=== PATIENT | male | born 1930 | race American Indian/Alaskan Native ===

== ENCOUNTER 2018-05-26 10:08 | Inpatient (IN) | payer MEDICARE, OTHER, BC ==
[2018-05-26 10:12] VITALS: BMI 27.8
--- NOTE | 2018-05-26 10:32 | EDPD ---
HPI Stroke - General Time Seen by Provider: 05/26/18 10:22 Historian: Patient, Family - History of Present Illness Narrative History of Present Illness (Free Text): 05/26/18 15:17 Patient is an 87 yo male, past medical history of lung cancer (family and patient decided "not to treat") presents with episode of shortness of breath and weakness "while in the shower" at approximatley 830 am. Patient was found by to be "very weak". When patient was seen by his daughter at approximately 900 am he was "slurring his speech". He initially denies headache , denies chest pain, denies weakness to any specific arm or leg. Daughter states that his speech is now back to normal. No abdominal pain. No nausea. No dark or bloody stools. rTPA Inclusion/Exclusion - Refusal of Treatment Patient Refused Treatment: Yes - Warning to TPA With Conditions Condition: Rapid Improvement Allergies/Home Meds Allergies/Adverse Reactions: Allergies No Known Allergies Allergy (Verified 06/10/13 08:23) Home Medications: Home Meds Medication Instructions Recorded Confirmed Warfarin [Coumadin] 3 mg PO DAILY 03/31/16 05/26/18 Albuterol HFA [Ventolin HFA 90 0.09 mg IH BID 05/26/18 05/26/18 mcg/actuation (8 g)] Albuterol/Ipratropium [Duoneb 3 3 ml IH BID 05/26/18 05/26/18 MG/3 Ml-0.5 MG/3 Ml 3 Ml] Cholecalciferol [Vitamin D] 1,000 iu PO DAILY 05/26/18 05/26/18 Furosemide [Lasix] 20 mg PO DAILY 05/26/18 05/26/18 Metoprolol Succinate [Toprol Xl] 25 mg PO DAILY 05/26/18 05/26/18 Rivastigmine 9.5 mg/24 hr [Exelon 1 ea TD DAILY 05/26/18 05/26/18 9.5 mg Patch] traMADol [Ultram] 50 mg PO PRN PRN 05/26/18 05/26/18 Review of Systems - Review of Systems Constitutional: Fatigue. absent: Fevers Eyes: absent: Vision Changes ENT: absent: Hearing Changes Respiratory: SOB. absent: Cough Cardiovascular: absent: Chest Pain, Palpitations, Edema, ARRIOLA Gastrointestinal: absent: Abdominal Pain, Nausea, Vomiting Genitourinary Male: absent: Dysuria Musculoskeletal: absent: Back Pain Skin: absent: Rash Neurological: Dizziness, Speech Changes. absent: Headache, Focal Weakness, Seizure Endocrine: absent: Polyuria Hemo/Lymphatic: absent: Easy Bleeding Psychiatric: absent: Depression ED Stroke Physical Exam Vital Signs Reviewed: Yes Temperature: Afebrile Appearance: Positive for: Ill-Appearing Pain Distress: Mild Mental Status: Positive for: Alert and Oriented X 3 - Systems Exam Head: Present: Atraumatic, Normocephalic Pupils: Present: PERRL Mouth: Present: Dry Pharnyx: No: ERYTHEMA Nose (Internal): Present: Normal Inspection Neck: Present: Normal Range of Motion. No: Meningeal Signs, JVD Respiratory/Chest: Present: Rales, Rhonchi. No: Respiratory Distress, Tachypneic Cardiovascular: Present: Regular Rate and Rhythm, Murmurs Abdomen: No: Tenderness, Distention Rectal: No: Gross Blood Back: No: CVA Tenderness Upper Extremity: No: Edema Lower Extremity: Present: Neurovascularly Intact. No: CALF TENDERNESS Neurologic: Present: Speech Normal, Motor Func Grossly Intact, Normal Sensory Function, Memory Normal. No: Pronator Drift, Facial Droop, Dysmetric Finger to Nose Skin: Present: Warm Psychiatric: Present: Alert, Normal Insight, Normal Concentration Medical Decision Making ED Course and Treatment: 05/26/18 10:30 Patient is an 87 yo male who presented with and daughter. History supplemented by daughter. He was noted to have slurred speech by daughter at approximately 900 am today after had reported that she did not appreciate this slurred speech at 830. CODE STROKE ACTIVATED 05/26/18 11:53 CT of Head reviewed by radiologist, shows no acute findings, Chest X-Ray reviewed by radiologist, shows no active disease. Although my interpretation of chest xray is left lower mass/infiltrate. Patient on re-evaulation is at his baseline mental status with normal speech on re-evaluation. He is NOT a tpa candidate as patient has rapid improvement and resolution of symptoms. Patient evaluated by Dr. Cuenca neuro in ED. Patient denies chest pain or shortness of breath with serial exams. EKG reveals right bundle branch block with first degree av block. No prior EKG for comparison. Troponin elevated at 0.12. He has no chest pain with serial exams. Suspect possible nonstemi, cannot exclude PE. PATIENT IS TAKING COUMADIN AND INR IS 2.7. No active bleeding noted. Patient evaluated by his pan washer hand in ED as well as PMD Dr. Jacquelin Houston. Differential diagnosis reviewed with admitting team, will endorse vq scan to admitting team. Patient's family updated with results, he is comfortable and denying shortness of breath. 05/26/18 15:45 - EKG Interpretation EKG Interpretation (Text): EKG at 11:17 normal sinus rhythm with first degree av block rate of 72, left axis deviation, right bundle branch block Interpreted by ED Physician: Yes Type: 12 lead EKG NIHSS Scale ([place]) Time Performed: 10:45 - How Severe is the Stoke Baseline Level of Consciousness: 0=Alert LOC to Questions: 0=Both comments correct LOC to commands: 0=Obeys both correctly Best Gaze: 0=Normal Visual: 0=No visual loss Facial: 0=Normal Motor Arm - Left: 0=No drift Motor Arm - Right: 0=No drift Motor Leg - Left: 0=No drift Motor Leg - Right: 0=No drift Limb Ataxia: 0=Absent Sensory: 0=Normal Best Language: 0=No aphasia Dysarthia: 0=Normal articulation Extinction & Inattention (Neglect): 0=Normal, no object Score: 0 Risk Level: No Stroke Risk Disposition/Present on Arrival - Present on Arrival Any Indicators Present on Arrival: Yes History of DVT/PE: Yes - Disposition Have Diagnosis and Disposition been Completed?: Yes Diagnosis: Elevated troponin, TIA (transient ischemic attack), Dyspnea, Myocardial infarction, Renal insufficiency Disposition: HOSPITALIZED Disposition Time: 12:30 Patient Plan: Admission, Telemetry Patient Problems: Current Active Problems Problem Status Onset Dyspnea Acute Elevated troponin Acute Myocardial infarction Acute TIA (transient ischemic attack) Acute Condition: SERIOUS
[2018-05-26 11:20] LABS: BASO # 0.01 K/mm3 (0.0-2.0); BASO % 0.1 % (0.0-3.0); EOS # 0.1 (0.0-0.7); EOS % 0.7 % (1.5-5.0); GRAN # 6.3 (1.4-6.5); GRAN % 75.5 % (50.0-68.0); HEMOGLOBIN 15.8 g/dL (14.0-18.0); LYMPH # 1.1 (1.2-3.4); LYMPH % 13.4 % (22.0-35.0); MEAN CELL VOLUME 79.3 fl (80.0-105.0); MEAN CORPUSCULAR HEMOGLOBIN 27.2 pg (25.0-35.0); MEAN CORPUSCULAR HGB CONC 34.3 g/dl (31.0-37.0); MEAN PLATELET VOLUME 10.4 fl (7.0-11.0); MONO # 0.9 (0.1-0.6); MONO % 10.3 % (1.0-6.0); RBC 5.81 10^6/uL (3.5-6.1); RED CELL DISTRIBUTION WIDTH 15.5 % (11.5-14.5); WHITE BLOOD COUNT 8.4 10^3/ul (4.5-11.0)
--- NOTE | 2018-05-26 11:20 | CT ---
Date of service: 05/26/2018 PROCEDURE: CT HEAD WITHOUT CONTRAST. HISTORY: Code Stroke COMPARISON: None available. TECHNIQUE: Axial computed tomography images were obtained through the head/brain without intravenous contrast. Radiation dose: Total exam DLP = 969 mGy-cm. This CT exam was performed using one or more of the following dose reduction techniques: Automated exposure control, adjustment of the mA and/or kV according to patient size, and/or use of iterative reconstruction technique. FINDINGS: HEMORRHAGE: No intracranial hemorrhage. BRAIN: No mass effect or edema. Moderate atrophy VENTRICLES: Unremarkable. No hydrocephalus. CALVARIUM: Unremarkable. PARANASAL SINUSES: Unremarkable as visualized. No significant inflammatory changes. MASTOID AIR CELLS: Unremarkable as visualized. No inflammatory changes. OTHER FINDINGS: The ER was notified at 11:15 a.m. IMPRESSION: No acute findings
--- NOTE | 2018-05-26 11:23 | RAD ---
Date of service: 05/26/2018 HISTORY: Code Stroke COMPARISON: No prior. FINDINGS: LUNGS: No active pulmonary disease. PLEURA: No significant pleural effusion identified, no pneumothorax apparent. CARDIOVASCULAR: Normal. OSSEOUS STRUCTURES: No significant abnormalities. VISUALIZED UPPER ABDOMEN: Normal. OTHER FINDINGS: None. IMPRESSION: No active disease.
[2018-05-26 11:30] LABS: INR 2.71 (0.93-1.08); PARTIAL THROMBOPLASTIN TIME 33.7 Seconds (25.1-36.5); PROTHROMBIN TIME 31.8 SECONDS (9.4-12.5)
[2018-05-26 11:31] LABS: ALB/GLOB RATIO 1.3 (1.1-1.8); ALBUMIN 3.8 g/dL (3.0-4.8); CALCIUM 11.6 mg/dL (8.4-10.5)
[2018-05-26 12:05] LABS: TROPONIN I 0.13 ng/mL
[2018-05-26] MEDS ORDERED: Metoprolol Succinate 25 mg XL Tab PO STA (17:06)
[2018-05-26] MEDS: Albuterol-Ipratrop 3 mg / 0.5 (3 ml) UD IH PRN (17:18)
[2018-05-26] MEDS ORDERED: Albuterol-Ipratrop 3 mg / 0.5 (3 ml) UD IH SCH (20:00)
[2018-05-26] MEDS ORDERED: Pneumococcal 23-Valent Vaccine IM ONE (20:30)
--- NOTE | 2018-05-26 20:52 | CARD ---
APPROVED REPORT Date of service: 05/26/2018 EKG Measurement Heart [id number] <Conclusion> Sinus rhythm with 1st degree AV block Left axis deviation Right bundle branch block Abnormal ECG
[2018-05-26] MEDS: Albuterol-Ipratrop 3 mg / 0.5 (3 ml) UD IH SCH (21:05)
--- NOTE | 2018-05-26 23:13 | CON ---
DATE: 05/26/2018 HISTORY OF PRESENT ILLNESS: The patient is an 87-year-old male who presents with nondescript neurologic changes this morning with an episode of atypical chest pain. PAST MEDICAL HISTORY: The patient's past medical history is notable for documented coronary disease. He also suffers from hypercholesterolemia. He has had a lung mass that was noted that is consistent with CA, has been treated conservatively. SOCIAL HISTORY: The patient is a former smoker. REVIEW OF SYSTEMS: The patient is comfortable in the emergency room without shortness of breath, without chest pain, without edema in the lower extremities, without dizziness, without orthopnea. PHYSICAL EXAMINATION: VITAL SIGNS: On physical exam, blood pressure is 119/77, heart rate is in the 80s. NECK: Negative JVD. LUNGS: Without rales. HEART: S1, S2. EXTREMITIES: Without edema. LABORATORY DATA: EKG shows no acute changes. BUN and creatinine is 34 and 1.6. Troponin is 0.13. Hemoglobin is 15. IMPRESSION: 1. Nonspecific neurologic symptoms. 2. No evidence for acute stroke. 3. Mildly elevated troponins consistent with non-ST elevation myocardial infarction. 4. Lung mass. 5. History of hypercholesterolemia. Given these findings, the patient is anticoagulated on his Coumadin already. Aspirin has been ordered. Beta-blockers has been ordered. Zeyad Nascimento MD
[2018-05-27] MEDS: Albuterol-Ipratrop 3 mg / 0.5 (3 ml) UD IH SCH ×4 (01:05→19:20)
[2018-05-27 07:26] LABS: HEMOGLOBIN 14.7 g/dL (14.0-18.0); MEAN CELL VOLUME 78.8 fl (80.0-105.0); MEAN CORPUSCULAR HEMOGLOBIN 26.6 pg (25.0-35.0); MEAN CORPUSCULAR HGB CONC 33.8 g/dl (31.0-37.0); MEAN PLATELET VOLUME 10.5 fl (7.0-11.0); RBC 5.52 10^6/uL (3.5-6.1); RED CELL DISTRIBUTION WIDTH 15.2 % (11.5-14.5); WHITE BLOOD COUNT 7.9 10^3/ul (4.5-11.0)
[2018-05-27 08:03] LABS: ALB/GLOB RATIO 1.2 (1.1-1.8); ALBUMIN 3.4 g/dL (3.0-4.8); CALCIUM 11.1 mg/dL (8.4-10.5)
[2018-05-27] MEDS: Albuterol-Ipratrop 3 mg / 0.5 (3 ml) UD IH PRN ×2 (10:53→17:48)
[2018-05-27] MEDS: Metoprolol Succinate 25 mg XL Tab PO SCH (10:57)
--- NOTE | 2018-05-27 11:08 | CP.PCM.CON ---
History of Present Illness - History of Present Illness History of Present Illness: Patient came in as a code stroke yesterday, and patient was seen about 15 minutes after code was called. On my examination, 's symptoms had resolved and patient was not a TPA candidate. Today he is neurologically the same, with no deficits. His history is as follows: was well until yesterday afternoon, when he was observed to have dysarthria, which was resolved by the time he came to the ER. The patient has dementia and he is not able to give a good history but it is obtained from the family. He is an 87 yr old male with pmh of lung cancer ( not receiving any treatment ), who had weakness and dysarthria while in the shower at 830 am, about 2 hours before presenting to the ER. His found him to be quite weak, and he was brought to the hospital. There is no history of prior stroke, head trauma or mva. He has not had an MRI Brain in the past. Of note, the patient is on coumadin for a DVT. PMH/PSH: as above. FH/SH: no tobacco, no etoh. . Has several children. All: nkda. on exam: MMS: 20/30. Has difficulty with calculations and the date, as well as written commands. There is no alexia, however. PERRL. CN 2-12 normal. speech fluent. can name and repeat. Motor: strength normal. Sensory: normal. no deficits. gait not tested. +2 dtr ul and ll bl. Toes downgoing. No clonus. no facial asymmetry. ' NIH stroke scale: 0 Past Patient History - Infectious Disease Hx of Infectious Diseases: None - Past Social History Smoking Status: Never Smoked - CARDIAC Hx Cardiac Disorders: Yes (cad) Other/Comment: DVT rt leg - PULMONARY Hx Respiratory Disorders: Yes (lung ca dx 12/04/17 [facility] [place]) Hx Chronic Obstructive Pulmonary Disease (COPD): Yes Hx Emphysema: Yes Hx Pneumonia: Yes Other/Comment: family and patient decided not to treat - NEUROLOGICAL Hx Neurological Disorder: No - HEENT Hx HEENT Problems: Yes (eyeglasses) - RENAL Hx Chronic Kidney Disease: Yes Hx Kidney Stones: Yes - ENDOCRINE/METABOLIC Hx Endocrine Disorders: No - HEMATOLOGICAL/ONCOLOGICAL Hx Blood Disorders: Yes Hx Cancer: Yes (lll lung ca) - INTEGUMENTARY Hx Dermatological Problems: No - MUSCULOSKELETAL/RHEUMATOLOGICAL Hx Falls: No - GASTROINTESTINAL Hx Gastrointestinal Disorders: Yes Hx Gastroesophageal Reflux: Yes - GENITOURINARY/GYNECOLOGICAL Hx Genitourinary Disorders: No - PSYCHIATRIC Hx Substance Use: No - SURGICAL HISTORY Hx Surgeries: Yes Hx Cardiac Catheterization: Yes ("yrs ago") Hx Cholecystectomy: Yes - ANESTHESIA Hx Anesthesia: No Meds Allergies/Adverse Reactions: Allergies Allergy/AdvReac Type Severity Reaction Status Date / Time No Known Allergies Allergy Verified 06/10/13 08:23 - Medications Medications: Current Medications Albuterol/Ipratropium (Duoneb 3 Mg/0.5 Mg (3 Ml) Ud) 3 ml IH [id number] [facility] Last Admin: 05/27/18 07:24 Dose: 3 ml Albuterol/Ipratropium (Duoneb 3 Mg/0.5 Mg (3 Ml) Ud) 3 ml IH Q2H PRN PRN Reason: Shortness of Breath Last Admin: 05/26/18 17:18 Dose: 3 ml Aspirin (Aspirin Chewable) 81 mg PO DAILY [facility] Atorvastatin Calcium (Lipitor) 20 mg PO DIN [facility] Last Admin: 05/26/18 17:15 Dose: 20 mg Furosemide (Lasix) 20 mg IVP DAILY [facility] Last Admin: 05/26/18 12:31 Dose: 20 mg Metoprolol Succinate (Toprol Xl) 25 mg PO DAILY [facility] Rivastigmine (Exelon 9.5 Mg/24 Hr Patch) 1 patch TD DAILY [facility] Tramadol HCl (Ultram) 50 mg PO DAILY PRN PRN Reason: Pain, severe (8-10) Last Admin: 05/26/18 21:07 Dose: 50 mg Warfarin Sodium (Coumadin) 5 mg PO DAILY [facility] PRN Reason: Protocol Results - Vital Signs Recent Vital Signs: Last Vital Signs Temp 97.3 F L 05/27/18 06:00 Pulse 76 05/27/18 06:00 Resp 19 05/27/18 06:00 BP 114/62 05/27/18 06:00 Pulse Ox 94 L 05/27/18 06:00 - Labs Result Diagrams: 05/27/18 06:30 05/27/18 06:45 Labs: Laboratory Results - last 24 hr 05/26/18 05/26/18 05/27/18 14:47 21:54 06:30 WBC 7.9 RBC 5.52 Hgb 14.7 Hct 43.5 MCV 78.8 L MCH 26.6 MCHC 33.8 RDW 15.2 H Plt Count 133 MPV 10.5 Sodium Potassium Chloride Carbon Dioxide Anion Gap BUN Creatinine Est GFR ( Amer) Est GFR (Non-Af Amer) POC Glucose (mg/dL) Random Glucose Calcium Total Bilirubin AST ALT Alkaline Phosphatase Troponin I 0.13 H* 0.12 Total Protein Albumin Globulin Albumin/Globulin Ratio 05/27/18 05/27/18 06:45 07:14 WBC RBC Hgb Hct MCV MCH MCHC RDW Plt Count MPV Sodium 137 Potassium 4.2 Chloride 109 H Carbon Dioxide 20 L Anion Gap 13 BUN 30 H Creatinine 1.4 Est GFR ( Amer) 58 Est GFR (Non-Af Amer) 48 POC Glucose (mg/dL) 82 Random Glucose 88 Calcium 11.1 H Total Bilirubin 0.9 AST 21 ALT 29 Alkaline Phosphatase 61 Troponin I Total Protein 6.2 Albumin 3.4 Globulin 2.9 Albumin/Globulin Ratio 1.2 - Imaging and Cardiology CT scan - head Status: Image reviewed by me, Report reviewed by me (normal) Assessment & Plan - Assessment and Plan (Free Text) Assessment: 87 yr old male who is by nature hypercoagulable due to lung cancer and also is on coumadin, and may have had TIA. We will do stroke workup at this time. Plan: 1. ECHO 2. INR is therapeutic at 2.7 3. MRI brain tomorrow 4. Bp may be controlled. 5. CTA head and neck would be advisable. If Dr. plascencia is on consult, please consult this group. Or we will follow Thank you Dr. curran
--- NOTE | 2018-05-27 12:00 | PN ---
DATE: 05/27/2018 CARDIOLOGY FOLLOWUP SUBJECTIVE: The patient is dyspneic without chest pain. PHYSICAL EXAMINATION: VITAL SIGNS: Blood pressure is 114/62 with the heart rate is in the 70s. NECK: Negative JVD. LUNGS: Decreased breath sounds with rhonchi at the bases. HEART: Reveals S1, S2. EXTREMITIES: Without edema. LABORATORY DATA: Hemoglobin is 14.7. Chemistries: Troponins are 0.012, creatinine is . Lung scan is pending. IMPRESSION: 1. Dyspnea. 2. [id number] myocardial infarction. 3. Lung cancer. 4. History of hypercholesterolemia. 5. Coronary artery disease. 6. The patient well anticoagulated on Coumadin. PLAN: Given these findings, the patient's probability of pulmonary embolism is low given his full anticoagulation. We will start him on Lasix 40 IV b.i.d. I had an extensive discussion with the patient and daughter about how aggressive to be in terms of his non-STEMI. They agree and with no invasive procedures at this time with conservative therapy only. This applies both to his lung CA as well as his non-STEMI. Zeyad Nascimento MD
--- NOTE | 2018-05-27 12:01 | PN ---
DATE: 05/27/2018 SUBJECTIVE: I saw Tre resting comfortably in bed. He ate 100% of his breakfast. He is feeling well. No chest pain. No shortness of breath. No abdominal pain. No weakness. He can move all four extremities. He is taking aspirin, warfarin, DuoNeb, Exelon patch, Lasix, Lipitor, metoprolol, and tramadol as needed. He is in good spirits. PHYSICAL EXAMINATION: VITAL SIGNS: He has a 97.8 temperature, 83 pulse, 119/73 blood pressure, 20 respiratory rate, 95% O2 sat on nasal cannula. HEENT: His head is atraumatic, normocephalic. HEART: Regular rate. LUNGS: Decreased breath sounds, but clear to auscultation. No wheezes, no rhonchi, no rales. ABDOMEN: Soft, nontender. Positive bowel sounds. No guarding, no rebound, no CVA tenderness. EXTREMITIES: No edema. NEUROLOGIC: He can move all four extremities equally. He can smile. He can put his tongue out midline. He is back to his baseline, completely normal. LABORATORY DATA: He had a 137 sodium, potassium 4.2, BUN is 30, creatinine 1.4, GFR is 58, sugar is 82, calcium is 11.1. Total bilirubin is 0.9, AST is 21, ALT is 29, alkaline phosphatase 61. His third troponin dropped to 0.12. Total protein is 6.2, albumin is 3.4. INR is 2.71. He has a 7.9 white count, 14.7 hemoglobin, 43.5 hematocrit with 138 platelets. There are consults for Cardiology, Neurology, and Physical Therapy. Get him out of bed to chair. If he does well, hopefully, maybe tomorrow we can discharge him. He had an non-ST elevation myocardial infarction, history of left lower lung mass, cancer, change in mentation, positive troponins, and he wants a code stroke anything. Kosta Houston DO RUCHI
--- NOTE | 2018-05-27 12:52 | NM ---
Date of service: 05/26/2018 COMPARISON: TECHNIQUE: 33.0 mCi technetium 99-m DTPA aerosol. 4.0 mCI technetium 99-m MAA administered intravenously. FINDINGS: VENTILATION COMPONENT: Heterogeneous distribution consistent with COPD PERFUSION COMPONENT: Normal. The V rad report indicated an intermediate probability of pulmonary embolus. I believe the scan is low probability. In particular the perfusion study shows no significant defects IMPRESSION: Lowprobability ventilation perfusion scan for pulmonary embolism.
[2018-05-27] MEDS: MethylPREDNISolone 40 mg Vial IVP SCH ×2 (13:44→21:54)
--- NOTE | 2018-05-27 19:14 | HP ---
HISTORY OF PRESENT ILLNESS: I saw him in the emergency room on 05/26/2018, and I dictated an H and P, but it did not populate. I am re-dictating the H and P on 05/27/2018, for 05/26/2018, when I saw him in the emergency room. He is an 87-year-old -French man whom I know very well from house calls for many years. He has a history of lung cancer and the family has tried not to treat. He has episodes of shortness of breath. He is supposed to be on oxygen at home 24 x 7, but the biggest problem is he takes it off all the time. He then had some slurred speech at home. No specific weakness. They took him to the emergency room. I understand he became code stroke without deficits. PAST MEDICAL HISTORY: Lung cancer; COPD; low vitamin D; CHF; hypertension; dementia; low back pain; atrial fibrillation, on Coumadin. ALLERGIES: HE HAS NO KNOWN DRUG ALLERGIES. REVIEW OF SYSTEMS: At this time, he is pleasant in the emergency room. No deficits. Alert, comfortable. No chest pain. No shortness of breath. No abdominal pain. No fatigue. No fevers. No vision or hearing changes. He is not short of breath anymore. No cough. Now, he is on oxygen. No chest pain or palpitation. No edema, dyspnea on exertion. No nausea, vomiting, constipation, or diarrhea. No problems urinating. No back pain. No issues with skin issues. He had dizziness. He had some speech changes early when he was off the oxygen. He normally sats between 92% and 93% at home on 2 to 3 L of oxygen. No headache or focal weakness. No problems urinating. No bleeding. No depression. He is pleasantly confused. PHYSICAL EXAMINATION: VITAL SIGNS: He had a 97.8 temperature, 74 pulse, 112/74 blood pressure, 90% O2 sat on room air. HEENT: His head is atraumatic, normocephalic. Extraocular muscles are intact. Pupils are equal and reactive to light. Throat is dry. HEART: Regular rate at this time. LUNGS: Decreased breath sounds, but clear to auscultation. No wheezes. No rhonchi. No rales. NECK: Supple. ABDOMEN: Soft, nontender. Positive bowel sounds. No guarding. No rebound. No CVA tenderness. RECTAL: He has had a rectal exam in the ER with no blood. EXTREMITIES: No edema. He can move all 4 extremities well. NEUROLOGIC: Speech is normal. Grossly intact. This is his baseline. By the time I got to him, I missed all the slurred speech which was happened before when he was off his oxygen. He is alert. Normal insight. He has some dementia, but he is back to his baseline. LABORATORY DATA: CAT scan showed no acute findings. EKG was normal sinus rhythm. Score on the stroke protocol was 0. No stroke risk at this time. He did have a 140 sodium, potassium 4.5. BUN 34, creatinine 1.6. GFR is 41. Sugar is 98. Calcium is 11.6. Total bili is 0.9, AST is 19, ALT is 22, alk phos 73. His troponin's are 0.13. Total protein 6.8, albumin 3.8, globulin 3. Triglyceride 70, cholesterol 133. White count is 8.4, hemoglobin 15.8, hematocrit is 129. INR is good at 2.71. He will have consults with Cardiology and Neurology. He will be put on aspirin, Coumadin. He has nebulizer treatment. He has Exelon patch, Lasix, Lipitor, metoprolol, and Ultram. He is here for a change in mentation, possible stroke, unlikely positive troponin's and shortness of breath. He has a history of lung cancer and change in mentation. Kosta Houston DO MTDD
[2018-05-27] MEDS: Budesonide 0.5 mg/2 ml Inhal Susp UD IH SCH (19:19)
[2018-05-27] MEDS ORDERED: Arformoterol 15 mcg/2 ml Inh Sol IH SCH (20:00)
[2018-05-28] MEDS: Albuterol-Ipratrop 3 mg / 0.5 (3 ml) UD IH SCH ×4 (01:08→19:40)
[2018-05-28] MEDS: MethylPREDNISolone 40 mg Vial IVP SCH ×3 (06:17→21:07)
[2018-05-28 06:21] LABS: HEMOGLOBIN 15.8 g/dL (14.0-18.0); MEAN CELL VOLUME 77.5 fl (80.0-105.0); MEAN CORPUSCULAR HEMOGLOBIN 27.3 pg (25.0-35.0); MEAN CORPUSCULAR HGB CONC 35.3 g/dl (31.0-37.0); MEAN PLATELET VOLUME 10.3 fl (7.0-11.0); RBC 5.78 10^6/uL (3.5-6.1); RED CELL DISTRIBUTION WIDTH 15.1 % (11.5-14.5); WHITE BLOOD COUNT 5.9 10^3/ul (4.5-11.0)
[2018-05-28 06:41] LABS: PROTHROMBIN TIME 51.8 SECONDS (9.4-12.5)
[2018-05-28 06:42] LABS: INR 4.37 (0.93-1.08)
[2018-05-28 06:50] LABS: ALB/GLOB RATIO 1.3 (1.1-1.8); ALBUMIN 3.6 g/dL (3.0-4.8); CALCIUM 11.7 mg/dL (8.4-10.5)
[2018-05-28] MEDS: Budesonide 0.5 mg/2 ml Inhal Susp UD IH SCH ×2 (07:39→19:40)
--- NOTE | 2018-05-28 10:17 | PN ---
DATE: 05/28/2018 SUBJECTIVE: He is resting in bed comfortably. He slept very well last night. He is feeling much better. No deficits. No problems. MEDICATIONS: He is on aspirin, albuterol, Exelon patch, Lasix, Lipitor, Pulmicort, Solu-Medrol 30 IV every 8 hours, I will drop it down to 20; metoprolol and Ultram. PHYSICAL EXAMINATION: VITAL SIGNS: He has a 97.4 temperature, 81 pulse, 120/80 blood pressure, 19 respiratory rate, 95% O2 sat on 5 liters. HEENT: His head is atraumatic, normocephalic. HEART: Regular rate. LUNGS: Decreased breath sounds, but clear. ABDOMEN: Soft. EXTREMITIES: No edema. LABORATORY DATA: He has a 137 sodium, potassium is 4.9, BUN is 34, creatinine 1.4, GFR is 48, sugar is 152, calcium is 11.7. Total bili is 0.6, AST is 17, ALT is 23, alk phos 72. Troponin I was less than 0.12, albumin is 6.3. INR went to 4.37. I will hold the Coumadin. He is not bleeding. He has 5.9 white count, 15.8 hemoglobin, 44.8 hematocrit with 141 platelets. He has been seen by Cardiology and Neurology. They are waiting for MRI of the brain, 2-D echo and carotids. I am hoping if they are okay and physical therapy says he could walk, he could be discharged later today back home. DIAGNOSES: He came in with elevated troponins, change in mentation, left lower lung mass which is chronic and he had an non-ST elevation myocardial infarction. Kosta Houston DO
--- NOTE | 2018-05-28 10:47 | CT ---
Date of service: 05/28/2018 PROCEDURE: CT Chest without contrast HISTORY: Hx iof Lung CA COMPARISON: 03/13/2018 TECHNIQUE: Contiguous axial images were obtained through the chest without intravenous contrast enhancement. Sagittal and coronal reconstructions were performed. Radiation dose (DLP): 379 mGy-cm. This CT exam was performed using one or more of the following dose reduction techniques: Automated exposure control, adjustment of the mA and/or kV according to patient size, and/or use of iterative reconstruction technique. FINDINGS: LUNGS: There is a mass in the left lower lobe that is unchanged in size. In the coronal plane this measures 4.4 cm in diameter. There is emphysema which is severe in the upper lobes. Multiple bulla are seen MEDIASTINUM: Unremarkable thoracic aorta. No aneurysm. Normal sized heart. Main pulmonary artery unremarkable. No vascular congestion. No lymphadenopathy. Coronary artery calcifications are seen PLEURA: No pleural fluid. No pneumothorax. BONES: No fracture. No destructive lesion. UPPER ABDOMEN: Grossly unremarkable. OTHER FINDINGS: None. IMPRESSION: Stable appearance of left lower lobe lung mass. Severe emphysema No evidence of metastatic disease
--- NOTE | 2018-05-28 11:59 | MRI ---
Date of service: 05/28/2018 PROCEDURE: MRI BRAIN WITHOUT CONTRAST HISTORY: Code stroke COMPARISON: None. TECHNIQUE: Multiplanar, multisequence MR images of the brain were obtained without intravenous contrast enhancement. FINDINGS: HEMORRHAGE: None DWI: No evidence of an acute or early subacute infarction. BRAIN PARENCHYMA: No mass effect or edema. There is moderate to severe atrophy. VENTRICLES: Unremarkable. No hydrocephalus. CRANIUM: Unremarkable. ORBITS: Grossly unremarkable. PARANASAL SINUSES/MASTOIDS: Clear VASCULAR SYSTEM: Skull base flow voids intact. OTHER FINDINGS: None. IMPRESSION: No acute intracranial findings
--- NOTE | 2018-05-28 14:36 | PN ---
DATE: 05/28/2018 CARDIOLOGY FOLLOWUP SUBJECTIVE: The patient is still intermittently dyspneic. The pressure earlier this morning was low after Lasix. Lasix has been held. Currently, the patient is in no acute distress. PHYSICAL EXAMINATION: VITAL SIGNS: Blood pressure 120/80, heart rate is in the 80s. NECK: Negative JVD. LUNGS: Bilateral rhonchi. HEART: Reveal S1, S2. EXTREMITIES: Without edema. LABORATORY DATA: Hemoglobin is 15.8, BUN and creatinine up to 34 and 1.4, the glucose is 152. CT scan of the chest revealed no change in the lung mass. There is severe emphysema. IMPRESSION: 1. Severe chronic obstructive pulmonary disease. 2. Dyspnea. 3. Lung cancer. 4. Amv-GE-phksaqeub myocardial infarction. 5. Coronary artery disease. 6. Anemia. 7. Weakness. PLAN: Given these findings, we will hold off his Lasix. In addition, I have reconfirmed with the patient's family that no invasive cardiac procedures will be done on the patient. We will stop his Lasix and continue to monitor on telemetry for 24 hours. Zeyad Nascimento MD
--- NOTE | 2018-05-28 16:22 | CON ---
DATE: 05/28/2018 NEUROLOGY CONSULTATION CHIEF COMPLAINT: Transient slurred speech, generalized weakness. HISTORY OF PRESENT ILLNESS: This is an 87-year-old man with past medical history of left lobe lung mass, COPD, AFib, cognitive impairment, on Exelon patch, who came in for shortness of breath, generalized weakness following tremor and was found to be very weak and questionable slurred speech. He underwent an MRI of the brain without contrast which showed no acute intracranial abnormality. His chest x-ray showed a left lower lobe mass. His blood pressures were on the lower side. In addition, he had an underlying NSTEMI which Cardiology is on board. He is on aspirin 81 mg in addition to Lipitor 20 mg p.o. daily. No acute events overnight. No focal neurological deficits seen on neuro examination besides some evidence of cognitive impairment. He is mildly deconditioned. PAST MEDICAL HISTORY: As above. SOCIAL HISTORY: No illicit drug use, smoking or EtOH abuse at this time. ALLERGIES: NO KNOWN DRUG ALLERGIES. FAMILY HISTORY: Noncontributory. MEDICATIONS: Reviewed by nurse per reconciliation sheet. REVIEW OF SYSTEMS: Fourteen-point review of systems is negative except as in the HPI. LABORATORY DATA: Sodium is 137, potassium 4.9, chloride 107, carbon dioxide of 18, BUN of 34, creatinine 1.4, random glucose of 152, calcium is 11.7, which is elevated. PHYSICAL EXAMINATION: VITAL SIGNS: Temperature of 97.4, pulse rate of 88, blood pressure 120/80, respiratory rate of 19, oxygen saturation 95% by room air. GENERAL: The patient is sitting up in bed, in no acute distress. HEENT: Head is atraumatic, normocephalic. PERRLA. Extraocular muscles intact. NECK: Supple. No JVD. No adenopathy noted. LUNGS: Clear to auscultation. No adventitious sounds. HEART: S1 and S2. Normal rate and rhythm. No murmurs, rub, or gallops. ABDOMEN: Soft, nontender, nondistended. Bowel sounds are present. EXTREMITIES: No clubbing. No cyanosis. Peripheral pulses 2+ felt bilaterally. NEUROLOGIC: The patient is alert and oriented to person and place, not much of month and year. Recall after 5 minutes is 0/3. Poor attention span. Slow thought process. Cranial nerves II through XII are intact. Motor exam: Moves all extremities equally. Slightly increased tone throughout. No pronator drift seen. Sensory exam: Light touch, pinprick, proprioception, vibration are intact. DTRs are 2+ throughout and 1 at both ankles. Coordination: Oiakcr-xv-lyzz intact. No dysmetria noted. Gait is deferred for now. ASSESSMENT AND PLAN: This is an 87-year-old man with history of chronic obstructive pulmonary disease, hypertension, history of atrial fibrillation on Coumadin, who presented for shortness of breath, generalized weakness and questionable transient slurred speech with secondary to transient cerebral hypoperfusion of the brain from low blood pressures, in addition had underlying non-ST elevation myocardial infarction. Currently, he is on aspirin and statin. His MRI of the brain showed no acute intracranial abnormality. He is deconditioned of his underlying history of lung cancer. At this time, recommend; 1. Aspirin 81 mg, Lipitor 20 for stroke prevention. 2. PT/OT as an outpatient at least 3 times a week for deconditioned state. 3. Continue with his Exelon patch for his cognitive impairment. 4. Follow up with Oncology as an outpatient in regards to the left lower lung mass and continue with current present medical management. He is stable for discharge. Thank you for this consult. Galo German MD
--- NOTE | 2018-05-28 18:29 | CARD ---
APPROVED REPORT Date of service: 05/28/2018 EXAM: Two-dimensional and M-mode echocardiogram with Doppler and color Doppler. INDICATION STROKE 2D DIMENSIONS RVDd4.5 (2.9-3.5cm)IVSd1.1 (0.7-1.1cm) LVDd4.0 (3.9-5.9cm)PWd1.2 (0.7-1.1cm) M-Mode DIMENSIONS Aortic Root3.60 (2.2-3.7cm)Aortic Cusp Exc.1.80 (1.5-2.0cm) Aortic Valve AoV Peak Ftggiydp800.0cm/Anjelica Peak GR.7mmHg Mitral Valve E/A ratio0.0 TDI E/Lateral E'0.0E/Medial E'0.0 Pulmonary Valve PV Peak Lpbxnfko56.4cm/sPV Peak Grad.1mmHg Tricuspid Valve TR Peak Yidpnndi225me/sRAP [id number] Peak Gr.72mmHg [id number] LEFT VENTRICLE The left ventricle is normal size. There is normal left ventricular wall thickness. The left ventricular function is low normal.EF-50-55 There is a flattened septum consistent with right ventricle volume and pressure overload. The left ventricular diastolic function is normal. No left ventricle thrombus noted on this study. There is no ventricular septal defect visualized. There is no left ventricular aneurysm. There is no mass noted in the left ventricle. RIGHT VENTRICLE The right ventricle is severely dilated. The right ventricle is borderline hypertrophied. Systolic function of RV is moderately to severely reduced. ATRIA The left atrium size is normal. The right atrium is moderately dilated. The interatrial septum is intact with no evidence for an atrial septal defect. AORTIC VALVE The aortic valve is thickened but opens well. There is trace aortic regurgitation. There is no aortic valvular stenosis. There is no aortic valvular vegetation. MITRAL VALVE The mitral valve is thickened but opens well. Mitral regurgitation is trace to mild. There is no mitral valve stenosis. There is no evidence of mitral valve prolapse. TRICUSPID VALVE The tricuspid valve leaflets are thickened , but open well. There is moderate to severe tricuspid regurgitation.RVSP-81 mmof hg. There is severe pulmonary hypertension. There is no tricuspid valve stenosis. There is no tricuspid valve prolapse or vegetation. PULMONIC VALVE The pulmonic valve is borderline thickened. There is mild pulmonic valvular regurgitation. There is no pulmonic valvular stenosis. GREAT VESSELS The aortic root is normal in size. The ascending aorta is normal in size. The pulmonary artery is normal. The IVC is normal in size and collapses >50% with inspiration. PERICARDIAL EFFUSION There is no pleural effusion. There is no pericardial effusion. <Conclusion> The left ventricle is normal size. There is normal left ventricular wall thickness. The left ventricular function is low normal.EF-50-55 There is a flattened septum consistent with right ventricle volume and pressure overload. The right ventricle is severely dilated. Systolic function of RV is moderately to severely reduced. There is trace aortic regurgitation. Mitral regurgitation is trace to mild. There is moderate to severe tricuspid regurgitation.RVSP-81 mmof hg. There is severe pulmonary hypertension. The IVC is normal in size and collapses >50% with inspiration. There is no pericardial effusion.
--- NOTE | 2018-05-28 18:44 | US ---
PROCEDURE: Bilateral carotid artery duplex ultrasound HISTORY: Carotid stenosis CVA PHYSICIAN(S): Zeyad Willis MD. TECHNIQUE: Duplex sonography and color-flow Doppler were used to evaluate the carotid bifurcations and limited segments of the vertebral arteries bilaterally. FINDINGS: There is mild to moderate diffuse smooth heterogeneous plaque noted at the carotid bifurcations bilaterally. The peak systolic velocity in the proximal right internal carotid artery is 46 cm/sec. This corresponds to a 20 to 39% proximal right ICA stenosis. Normal systolic velocities are noted in the proximal right external carotid artery. There is antegrade flow in the right vertebral artery. The peak systolic velocity in the proximal left internal carotid artery is 53 cm/sec. This corresponds to a 20 to 39% proximal left ICA stenosis. Normal systolic velocities are noted in the proximal left external carotid artery. There is antegrade flow in the left vertebral artery. IMPRESSION: 1. 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 2. Antegrade flow in both vertebral arteries.
--- NOTE | 2018-05-28 20:27 | CON ---
DATE: 05/27/2018PULMONARY CONSULTATION LOCATION: Room 263, bed 2. HISTORY OF PRESENT ILLNESS: The patient has longstanding chronic obstructive pulmonary disease. He was admitted to the hospital through the emergency room for shortness of breath. He was found to have an acute myocardial infarction. He has a history of lung cancer in the past, evidently this was not treated, the time span of this is not clear. The patient was evidently experiencing a cerebrovascular accident at the time of being in the emergency room. Although, now he is awake and alert in his room, able to answer questions fully. PAST MEDICAL HISTORY: History of lung cancer as described above, chronic obstructive pulmonary disease, dementia and atrial fibrillation, on Coumadin. ALLERGIES: NO KNOWN ALLERGIES. HOME MEDICATIONS: Unclear. SOCIAL HISTORY: Former smoker. No occupational exposure. No travel history. FAMILY HISTORY: Coronary artery disease. REVIEW OF SYSTEMS: There were no abnormalities noted other than that described above. He has a history of issues with his heart in the past. His COPD and lung cancer is documented. All other systems negative. PHYSICAL EXAMINATION GENERAL: The patient is comfortable in bed, in no acute distress. VITAL SIGNS: Stable. He remains afebrile at 98.2, pulse 70, respiratory rate 16, blood pressure 120/70. O2 sat 90% on room air, on supplemental oxygen 96%. HEENT: Normocephalic, atraumatic. EOMs full. Conjunctivae pink. NECK: Supple. No jugular venous distention. No bruit, no mass, no thyromegaly. HEART: Regular rhythm. S1, S2 without murmur, gallop or rub. CHEST: Global decrease in breath sounds. No wheezing noted. Minimal rhonchi noted. No rales appreciated. ABDOMEN: Soft. Bowel sounds normoactive without mass, guarding, rebound or organomegaly. EXTREMITIES: Reveal no clubbing, cyanosis or edema. NEUROLOGIC: Reveals no focal findings. SKIN: Normal without rash or excoriation. Lymphadenopathy is not present. LABORATORY DATA: Chest x-ray was clear, although underlying "lung cancer" is not seen. A CAT scan would be necessary to further evaluate. EKG; sinus rhythm, nonspecific ST-T wave changes. Blood work shows a normal electrolytes with a BUN of 34, creatinine of 1.6 and calcium is 11.6, white count 8000. No other laboratory studies are available at this time. IMPRESSION: 1. Underlying chronic obstructive pulmonary disease. 2. Underlying lung cancer, not seen on chest x-ray. 3. Possible cerebrovascular accident, on Coumadin. PLAN: The patient is being evaluated by Cardiology and Neurology. We will discuss with Dr. Kosta Houston from Internal Medicine to decide on the need for further intervention. In the meantime, however, the patient will be on inhaled bronchodilators and corticosteroids and CAT scan requested. Thank you for the opportunity to evaluate this patient. Nelson Freitas MD MTDD
[2018-05-29] MEDS: Albuterol-Ipratrop 3 mg / 0.5 (3 ml) UD IH SCH ×3 (01:35→13:31)
[2018-05-29 05:43] VITALS: O2SAT 95
[2018-05-29] MEDS: MethylPREDNISolone 40 mg Vial IVP SCH (05:58)
[2018-05-29 06:19] LABS: HEMOGLOBIN 15.7 g/dL (14.0-18.0); MEAN CELL VOLUME 78.3 fl (80.0-105.0); MEAN CORPUSCULAR HEMOGLOBIN 27.1 pg (25.0-35.0); MEAN CORPUSCULAR HGB CONC 34.6 g/dl (31.0-37.0); MEAN PLATELET VOLUME 10.7 fl (7.0-11.0); RBC 5.8 10^6/uL (3.5-6.1); RED CELL DISTRIBUTION WIDTH 15.1 % (11.5-14.5); WHITE BLOOD COUNT 10.8 10^3/ul (4.5-11.0)
[2018-05-29 06:35] LABS: PROTHROMBIN TIME 56.1 SECONDS (9.4-12.5)
[2018-05-29 06:36] LABS: INR 4.73 (0.93-1.08)
[2018-05-29 07:14] LABS: ALB/GLOB RATIO 1.4 (1.1-1.8); ALBUMIN 3.6 g/dL (3.0-4.8); ALT/SGPT 29 U/L (7-56); AST/SGOT 25 U/L (17-59); BLOOD UREA NITROGEN 39 mg/dL (7-21); CALCIUM 11.6 mg/dL (8.4-10.5); GFR AFRICAN-AMERICAN > 60; GFR NON-AFRICAN AMERICAN 52
[2018-05-29] MEDS: Budesonide 0.5 mg/2 ml Inhal Susp UD IH SCH (07:45)
[2018-05-29] MEDS: Metoprolol Succinate 25 mg XL Tab PO SCH (10:13)
[2018-05-29 11:37] VITALS: BP 104/62; RESP 20; TEMP 97.4
[2018-05-29] MEDS ORDERED: Insulin Regular 1 UNITS/0.01 ML ML SC ONE (12:02)
--- NOTE | 2018-05-29 12:29 | PN ---
DATE: 05/29/2018 PULMONARY PROGRESS NOTE SUBJECTIVE: The patient is feeling relatively well, has no complaints of acute shortness of breath. He is hospitalized for myocardial infarction. He has chronic obstructive pulmonary disease. CT scan of his chest in fact shows a large lung mass that was not treated in the past. The past history is unclear. As the patient is unable to give further history, we will need to discuss with primary medical doctor to find out the chronology of the COPD and lung cancer. PHYSICAL EXAMINATION: GENERAL: The patient is resting comfortably in no acute distress. VITAL SIGNS: Remain stable. He is afebrile. Respiratory rate 16, O2 sat 98% on room air. NECK: Supple. No JVD. No bruit. HEART: Regular rhythm. S1, S2 without murmur, gallop or rub. CHEST: Global decrease in breath sounds. No wheezing appreciated. Minimal rhonchi is still noted. No rales. ABDOMEN: Soft. Bowel sounds normoactive without mass, guarding, rebound or organomegaly. EXTREMITIES: Reveals no clubbing, cyanosis or edema. There is no Homans' sign. NEUROLOGIC: No focal findings. SKIN: Dry; intact. LABORATORY DATA: CT scan as discussed above. Lung cancer was not seen on the chest x-ray, but a CT scan did prove to show a lung mass. IMPRESSION: 1. Chronic obstructive pulmonary disease. 2. Underlying lung cancer. 3. Cerebrovascular accident. 4. Myocardial infarction. PLAN: We need to obtain history about the chronic obstructive pulmonary disease and lung cancer. This was clearly not treated in the past, the time spent is not clear. We will discuss with Dr. Houston and see if there is any additional information regarding this. If the diagnosis was made, then no diagnostic intervention is required. If not, the patient will require a tissue diagnosis of this lung mass. Once the myocardial infarction is stabilized, we will discuss this with you at length and decide on the need for further evaluation and treatment at the appropriate time in view of an acute myocardial infarction. Nelson Freitas MD [facility]
--- NOTE | 2018-05-29 14:59 | PN ---
DATE: 05/29/2018 CARDIOLOGY FOLLOWUP SUBJECTIVE: The patient is without shortness of breath today. No chest pain noted. PHYSICAL EXAMINATION: VITAL SIGNS: Blood pressure 104/62, the heart rate is in the 80s. NECK: Negative JVD. LUNGS: Without rales. HEART: Reveals S1, S2. EXTREMITIES: Without edema. LABORATORY DATA: Hemoglobin is 15.7. Chemistries: BUN and creatinine are 39 and 1.3. Glucose is 141. IMPRESSION: 1. . 2. Lung mass consistent with cancer. 3. Coronary artery disease. 4. Dyspnea which is now resolved. 5. Recent usk-[id number] myocardial infarction 6. Anemia. Given these findings, we will continue the patient's treatment of his non-STEMI medically. No plans for intervention. Zeyad Nascimento MD
[2018-05-29 15:26] VITALS: PULSE 77
--- NOTE | 2018-05-29 22:26 | DS ---
HISTORY OF PRESENT ILLNESS: He is resting comfortable out of bed to chair. No chest pain. No shortness of breath. No abdominal pain. He is eating well. He is walking well. He is doing better than when he came in. PHYSICAL EXAMINATION: VITAL SIGNS: He has a 97.6 temp, 87 pulse, 118/84 blood pressure, 18 respiratory rate, 95% O2 sat on room air. HEENT: His head is atraumatic, normocephalic. HEART: Regular rate. LUNGS: Decreased breath sounds, but clear. ABDOMEN: Soft. EXTREMITIES: No edema. MEDICATIONS: He is currently on aspirin; DuoNebs; Exelon; Lipitor; Pulmicort; Solu-Medrol, which we could stop and put him on prednisone; and Ultram. LABORATORY DATA: He has a 10.8 white count, 15.7 hemoglobin, 45.4 hematocrit with 149 platelets. He has a 135 sodium, potassium 4.7, BUN 39, creatinine 1.3, GFR is 52, sugar is 141, calcium is 11.6, AST is 25, ALT is 29, alk phos is 69. ASSESSMENT AND PLAN: Waiting for Dr. Nascimento to come in. If it is okay with Dr. Nascimento, we could discharge him home. I think that would be fine. He will stop the Solu-Medrol. I will put him on prednisone and I will follow up on the outpatient when house calls. He was here for change in mentation. I think he just had hypoxemia and a cds-[id number] myocardial infarction. Kosta Houston DO [facility]
== END 2018-05-29 16:29 | disposition home or self-care (01) | DRG 281 ==
LOC: ED 10:08 → ERH 12:42 → 2RNO 15:51
PROVIDERS: ADMIT Family Medicine; ATTEND Family Medicine
DX: I21.4 Non-ST elevation (NSTEMI) myocardial infarction (principal); I13.0 Hypertensive heart and chronic kidney disease with heart failure and stage 1 through stage 4 chronic kidney disease, or unspecified chronic kidney disease; C34.90 Malignant neoplasm of unspecified part of unspecified bronchus or lung; D68.69 Other thrombophilia; G45.9 Transient cerebral ischemic attack, unspecified; I50.9 Heart failure, unspecified; I25.10 Atherosclerotic heart disease of native coronary artery without angina pectoris; I48.91 Unspecified atrial fibrillation; J44.9 Chronic obstructive pulmonary disease, unspecified; N18.9 Chronic kidney disease, unspecified; D64.9 Anemia, unspecified; E78.00 Pure hypercholesterolemia, unspecified; F03.90 Unspecified dementia, unspecified severity, without behavioral disturbance, psychotic disturbance, mood disturbance, and anxiety; K21.9 Gastro-esophageal reflux disease without esophagitis; R09.02 Hypoxemia; Z79.01 Long term (current) use of anticoagulants; Z79.82 Long term (current) use of aspirin; Z79.899 Other long term (current) drug therapy; Z87.01 Personal history of pneumonia (recurrent); Z87.442 Personal history of urinary calculi; Z87.891 Personal history of nicotine dependence; Z90.49 Acquired absence of other specified parts of digestive tract

== ENCOUNTER 2018-06-30 10:35 | Observation (INO) | payer MEDICARE, OTHER, BC ==
--- NOTE | 2018-06-30 11:11 | ED PDOC ---
Arrival/HPI <Good Pope - Last Filed: 06/30/18 12:52> - General Historian: Patient - History of Present Illness Time/Duration: < week Symptom Onset: Gradual Symptom Course: Unchanged, Intermittent, Worsening Quality: Aching, Cramping, Gas Like Severity Level: 6 Activities at Onset: Rest Context: Exertion <Misbah Yates - Last Filed: 06/30/18 17:28> - General Chief Complaint: Abdominal Pain Time Seen by Provider: 06/30/18 10:36 - History of Present Illness Narrative History of Present Illness (Text): 06/30/18 11:07 Patient is an 87 year old male with PMH of recent NSTEMI, COPD (on home O2), lung CA, and DVT (9 years ago) who presents to Emergency department with what he says is chest pain and SOB for the last two days. When asked to point to the location of his pain, he points to the mid-epigastric region. Patient states that the epigastric pain is an intermittent, gas-like cramping pain that radiates to his lower abdomen and groin. His family is also concerned that he has been urinating less. He normally follows with his PMD Dr. 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 He admits to non-productive cough, dyspnea on exertion, but denies wheezing, palpitations, fever, chills, nausea/vomiting/diarrhea, or dysuria. (Misbah Yates) Past Medical History - Provider Review Nursing Documentation Reviewed: Yes - Travel History Have you recently traveled outside [place] w/in the past 3 mons?: No - Infectious Disease Hx of Infectious Diseases: None - Cardiac Hx Cardiac Disorders: Yes Hx RI: Yes Other/Comment: DVT rt leg - Pulmonary Hx Respiratory Disorders: Yes Hx Chronic Obstructive Pulmonary Disease (COPD): Yes Hx Emphysema: Yes Hx Pneumonia: Yes - Neurological Hx Neurological Disorder: Yes Hx Transient Ischemic Attacks (TIA): Yes - HEENT Hx HEENT Disorder: Yes (eyeglasses) - Renal Hx Renal Disorder: Yes Hx Kidney Stones: Yes Hx Renal Failure: Yes - Endocrine/Metabolic Hx Endocrine Disorders: No - Hematological/Oncological Hx Blood Disorders: Yes Hx Cancer: Yes - Integumentary Hx Dermatological Disorder: No - Musculoskeletal/Rheumatological Hx Musculoskeletal Disorders: Yes Hx Back Pain: Yes - Gastrointestinal Hx Gastrointestinal Disorders: Yes Hx Gastroesophageal Reflux: Yes - Genitourinary/Gynecological Hx Genitourinary Disorders: No - Psychiatric Hx Psychophysiologic Disorder: No Hx Substance Use: No - Surgical History Hx Cardiac Catheterization: Yes Hx Cholecystectomy: Yes - Anesthesia Hx Anesthesia: No <Misbah Yates - Last Filed: 06/30/18 17:28> Family/Social History - Physician Review Nursing Documentation Reviewed: Yes Family/Social History: CAD/RI (father) Smoking Status: Former Smoker (former smoker with 40 pack year history, quit more than 10 years ago) Hx Alcohol Use: No Hx Substance Use: No <Misbah Yates - Last Filed: 06/30/18 17:28> Allergies/Home Meds <Good Pope - Last Filed: 06/30/18 12:52> <Misbah Yates - Last Filed: 06/30/18 17:28> Allergies/Adverse Reactions: Allergies No Known Allergies Allergy (Verified 06/30/18 10:42) Home Medications: Home Meds Medication Instructions Recorded Confirmed Warfarin [Coumadin] 3 mg PO DAILY 03/31/16 06/30/18 Albuterol HFA [Ventolin HFA 90 0.09 mg IH BID 05/26/18 06/30/18 mcg/actuation (8 g)] Albuterol/Ipratropium [Duoneb 3 3 ml IH BID 05/26/18 06/30/18 mg/0.5 mg (3 ml) UD] Cholecalciferol [Vitamin D 1000 IU] 2,000 iu PO DAILY 05/26/18 06/30/18 Furosemide [Lasix] 20 mg PO DAILY 05/26/18 06/30/18 Metoprolol Succinate [Toprol Xl] 25 mg PO DAILY 05/26/18 06/30/18 traMADol [Ultram] 50 mg PO PRN PRN 05/26/18 06/30/18 Review of Systems - Physician Review All systems were reviewed & negative as marked: Yes - Review of Systems Constitutional: Fatigue. absent: Weight Change, Fevers, Night Sweats Eyes: absent: Vision Changes ENT: absent: Sore Throat, Rhinorrhea Respiratory: SOB, Cough. absent: Sputum, Wheezing Cardiovascular: ARRIOLA. absent: Chest Pain, Palpitations, Orthopnea, Syncope Gastrointestinal: Abdominal Pain. absent: Stool Changes, Diarrhea, Nausea, Vomiting Genitourinary Male: Urinary Output Changes. absent: Dysuria, Frequency Musculoskeletal: absent: Arthralgias Skin: absent: Rash Neurological: absent: Headache, Dizziness, Speech Changes Endocrine: absent: Diaphoresis Hemo/Lymphatic: absent: Adenopathy Psychiatric: absent: Anxiety, Depression <YatesMisbah sousa - Last Filed: 06/30/18 17:28> Physical Exam Vital Signs Reviewed: Yes Temperature: Afebrile Blood Pressure: Normal Pulse: Regular Respiratory Rate: Normal Appearance: Positive for: Ill-Appearing, Uncomfortable Pain Distress: Moderate Mental Status: Positive for: Alert and Oriented X 3 - Systems Exam Head: Present: Atraumatic, Normocephalic Pupils: Present: PERRL Extroacular Muscles: Present: EOMI Conjunctiva: Present: Normal Ears: Present: Normal Mouth: Present: Dry Pharnyx: Present: Normal. No: ERYTHEMA, EXUDATE Nose (External): Present: Atraumatic Neck: Present: Normal Range of Motion. No: JVD Respiratory/Chest: Present: Clear to Auscultation. No: Wheezes, Rales, Rhonchi Cardiovascular: Present: Regular Rate and Rhythm, Normal S1, S2. No: Murmurs, Rub, Gallop Abdomen: Present: Tenderness (mild tenderness to palpation mid-epigastric region and RLQ). No: Rebound, Guarding Back: Present: Normal Inspection Upper Extremity: Present: Normal Inspection, NORMAL PULSES. No: Cyanosis, Edema Lower Extremity: Present: Normal Inspection, NORMAL PULSES. No: Edema, Swelling Neurological: Present: Speech Normal Skin: Present: Warm, Dry Psychiatric: Present: Alert, Oriented x 3 <YatesMisbah sousa - Last Filed: 06/30/18 17:28> Vital Signs Temp Pulse Resp BP Pulse Ox 06/30/18 15:19 82 19 90 L 06/30/18 14:10 81 19 116/43 L 90 L 06/30/18 12:11 102/64 06/30/18 11:50 77 102/64 88 L 06/30/18 11:10 81 19 117/88 94 L 06/30/18 10:53 98 F 82 21 99/58 L 93 L 06/30/18 10:50 87 22 99/58 L 92 L Medical Decision Making <Good Pope - Last Filed: 06/30/18 12:52> - Lab Interpretations I have reviewed the lab results: Yes Interpretation: No sign. chg./baseline (troponin 0.17 not significantly changed from prior visit, BUN/Cr not changed from baseline) - RAD Interpretation [employer] Mechanic: ED Physician, Radiologist - EKG Interpretation Interpreted by ED Physician: Yes Type: 12 lead EKG Comparison: Com.w/previous EKG <Misbah Yates - Last Filed: 06/30/18 17:28> ED Course and Treatment: 06/30/18 12:51 87 year old male presenting to the Emergency department complaining of chest pain. Patient Seen With Resident: In agreement with resident note which contains more details about the patient. Patient was seen and evaluated with resident. Came up with plan and treatment together. (Good Pope) 06/30/18 11:13 -Patient initially stated he had chest pain and SOB but when asked to point to location of pain he points to the mid-epigastric region -Will get CBC, CMP, Troponin, Chest X-Ray, Lipase, CT abdomen/pelvis with PO contrast and gallbladder/pancreas US -Patient took four 81 mg ASA at home before coming to Emergency department 06/30/18 13:09 -Low suspicion for acute ischemia -CT with PO contrast pending 06/30/18 16:52 -CT with PO contrast was limited but showed no acute changes from prior -Troponin of 0.17 is slightly elevated from prior visits -Results discussed with family who states they would like him to stay overnight -Case discussed with Dr. Houston who agrees to admit for observation -Per Dr. Houston request, will repeat troponin at 1900 (8 hours from initial) and Q8h x 2 (Misbah Yates) - Lab Interpretations Lab Results: 06/30/18 11:00 06/30/18 11:00 Lab Results 06/30/18 17:10: Urine Color Dark yellow, Urine Appearance Clear, Urine pH 6.0, Ur Specific [place] 1.025, Urine Protein Negative, Urine Glucose (UA) Negative, Urine Ketones Negative, Urine Blood Negative, Urine Nitrate Negative, Urine Bilirubin Negative, Urine Urobilinogen 0.2, Ur Leukocyte Esterase Trace H, Urine RBC Pending, Urine WBC Pending 06/30/18 11:00: Lipase 70 06/30/18 11:00: Sodium 140, Potassium 4.3, Chloride 108 H, Carbon Dioxide 21, Anion Gap 16, BUN 28 H, Creatinine 1.7 H, Est GFR ( Amer) 46, Est GFR ( Non-Af Amer) 38, Random Glucose 103, Calcium 12.0 H, Total Bilirubin 0.8, AST 23 , ALT 29, Alkaline Phosphatase 64, Troponin I 0.17 H* D, Total Protein 6.4, Albumin 3.6, Globulin 2.8, Albumin/Globulin Ratio 1.3 06/30/18 11:00: PT 30.6 H, INR 2.61, APTT 34.5 06/30/18 11:00: WBC 8.6 D, RBC 5.78, Hgb 15.8, Hct 45.4, MCV 78.5 L, MCH 27.3, MCHC 34.8, RDW 16.7 H, Plt Count 196, MPV 9.5, Gran % 70.7 H, Lymph % (Auto) 15.6 L, [place] % (Auto) 12.9 H, Eos % (Auto) 0.7 L, Baso % (Auto) 0.1, Gran # 6.10 , Lymph # (Auto) 1.4, [place] # (Auto) 1.1 H, Eos # (Auto) 0.1, Baso # (Auto) 0.01 - RAD Interpretation Narrative RAD Interpretations (Text): CXR without acute findings 06/30/18 15:06 TECHNIQUE: Sonographic evaluation of the right upper quadrant of the abdomen. FINDINGS: LIVER:Measures 13.3 cm in length. Normal echogenicity of the liver parenchyma. No mass. No intrahepatic bile duct dilatation. GALLBLADDER:Cholecystectomy COMMON BILE DUCT:Measures 8.0 mm likely due to cholecystectomy and advanced age. No stones. No dilatation. PANCREAS:Unremarkable as visualized. No mass. No ductal dilatation. RIGHT KIDNEY:Measures 9.0 x 4.1 x 5.3 cm in length. Normal echogenicity. No calculus, mass, or hydronephrosis. AORTA:No aneurysmal dilatation. IVC:Unremarkable. OTHER FINDINGS:None . IMPRESSION: Cholecystectomy. Common bile duct slightly the prominent 8 mm though this is likely due to post cholecystectomy and advanced age. 06/30/18 16:30 PROCEDURE: CT Abdomen and Pelvis with Oral contrast. HISTORY:Right-sided abdominal pain. COMPARISON:Correlation made with prior CT chest dated 05/28/2018 which image the upper abdomen. Correlation also made with PET-CT scan dated 12/18/2017. TECHNIQUE:Contiguous axial images of the abdomen and pelvis performed of following oral contrast material. Additional 2D sagittal and coronal reformats generated. This CT exam was performed using one or more of the following dose reduction techniques: Automated exposure control, adjustment of the mA and/or kV according to patient size, and/or use of iterative reconstruction technique. Total exam DLP = 344.03 mGy-cm. . The examination is limited due to the lack of circulating intravenous contrast material as well as motion artifact. FINDINGS: LOWER THORAX:Re- demonstrated is a large mass lesion located in the posteromedial lower lung field. This could be secondary to a large primary neoplasm however clinical correlation recommended. Questionable small loculated left-sided pleural effusion Extensive centrilobular and panlobular emphysematous changes within both lung bases again noted. . Cardiomegaly. Small pericardial effusion. There is a small pericardial effusion. LIVER:Liver exhibits normal size. No obvious hepatic mass or collection seen on this limited noncontrast study GALLBLADDER AND BILE DUCTS:Cholecystectomy. PANCREAS:Pancreas appears atrophic and fatty replaced. SPLEEN:Unremarkable. No splenomegaly. ADRENALS:No obvious adrenal lesions. KIDNEYS AND URETERS:Both kidneys are present. Re- demonstrated is a large approximately 16.6 mm calcification posterior cortex mid pole left kidney. No evidence of hydronephrosis BLADDER:Urinary bladder incompletely distended which presumably accounts for slight thick-walled appearance. Muscular hypertrophy may contribute. Correlation with urinalysis recommended to exclude UTI. REPRODUCTIVE:Prostate gland measures approximately 4.8 cm in transverse dimension. APPENDIX:Appendix is not seen with any certainty on this study BOWEL:Evaluation of the bowel is somewhat limited due to the incomplete opacification and at fairly significant motion artifact on partially obscuring of loops of large and small bowel in the upper and mid abdomen. Stomach is distended with food debris/liquid contrast and air. Visualized loops of small bowel exhibit relatively normal contour and so far be determined through motion artifact. No evidence of acute mechanical small bowel obstruction with oral contrast material present in the proximal large bowel. . No gross mural wall thickening so far as can be seen within limitation of this study PERITONEUM:Unremarkable. No fluid collection. No free air. LYMPH NODES:Unremarkable. No enlarged lymph nodes. VASCULATURE:Minimal localized dilatation distal abdominal aorta measures approximately 2.6 cm. The aorta just proximal to this level measures 1.98 and just distally measures approximately 1.87 cm BONES:Multilevel degenerative spondylosis of the lower thoracic and lumbar spine. There is very minor levoscoliosis in the lower lumbar region. OTHER FINDINGS: None. IMPRESSION:Limited motion degraded study. Study is further limited by the lack of circulating intravenous contrast material. Cardiomegaly with small pericardial effusion. Re- demonstrated is a large mass lesion left lung base could represent on primary neoplasm. There is associated small loculated pleural effusion. Cholecystectomy. No evidence of acute mechanical bowel obstruction however evaluation of the bowel is quite limited particularly the on loops of small large bowel in the upper and mid abdomen. 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 Re- demonstrated is a calcification posterior cortex mid pole left kidney ( Misbah Yates) Radiology Orders: 06/30/18 11:05 CHEST PORTABLE [RAD] Stat 06/30/18 11:38 HEPATIC [US] Stat 06/30/18 11:40 ABDOMEN & PELVIS [ABD & PELVIS PO CONTRAST ONLY] [CT] Stat - EKG Interpretation EKG Interpretation (Text): 06/30/18 12:24 Sinus rhythm with 1st degree AV block, RBBB unchanged from prior EKGs (Misbah Yates) - Medication Orders Current Medication Orders: Discontinued Medications Morphine Sulfate (Morphine) 2 mg IVP STAT STA Stop: 06/30/18 11:42 Last Admin: 06/30/18 11:52 Dose: 2 mg THIAGO Pain Assessment Document 06/30/18 11:52 GMI (Rec: 06/30/18 11:52 GMI [id number]) Pain Reassessment Is this a pain reassessment? Yes Sleep Is patient sleeping during reassessment? No Presence of Pain Presence of Pain Yes Pain Scale Used Pain Scale Used Numeric Location Left, Right or Bilateral Left Pain Location Body Site Chest Description Description Constant Intensity of Pain at present 6 Pain Behavior Facial Grimacing Alleviating Factors/Management Position Change Techniques Alleviating Factors Medication IVP Administration Document 06/30/18 11:52 GMI (Rec: 06/30/18 11:52 GMI [id number]) Charges for Administration # of IVP Administrations 1 Re-Assess: THIAGO Pain Assessment Document 06/30/18 12:52 GMI (Rec: 06/30/18 17:08 GMI [id number]) Pain Reassessment Is this a pain reassessment? Yes Sleep Is patient sleeping during reassessment? No - PA / MAGNETIC TAPE WINDER / Resident Statement MD/DO has reviewed & agrees with the documentation as recorded. MD/DO has examined the patient and agrees with the treatment plan. - Scribe Statement The provider has reviewed the documentation as recorded by the Scribe <Good Pope - Last Filed: 06/30/18 12:52> <Misbah Yates - Last Filed: 06/30/18 17:28> - Scribe Statement Maria Sin All medical record entries made by the Scribe were at my direction and personally dictated by me. I have reviewed the chart and agree that the record accurately reflects my personal performance of the history, physical exam, medical decision making, and the department course for this patient. I have also personally directed, reviewed, and agree with the discharge instructions and disposition. (Good Pope) Disposition/Present on Arrival <Good Pope - Last Filed: 06/30/18 12:52> - Present on Arrival Any Indicators Present on Arrival: Yes History of DVT/PE: Yes History of Uncontrolled Diabetes: No Urinary Catheter: No History of Decub. Ulcer: No History Surgical Site Infection Following: None - Disposition Have Diagnosis and Disposition been Completed?: Yes Disposition Time: 16:55 Patient Plan: Admission, Observation <Misbah Yates - Last Filed: 06/30/18 17:28> - Disposition Diagnosis: Abdominal pain, Elevated troponin Disposition: HOSPITALIZED Patient Problems: Current Active Problems Problem Status Onset Abdominal pain Acute Elevated troponin Acute Condition: FAIR
[2018-06-30 11:14] LABS: BASO # 0.01 K/mm3 (0.0-2.0); BASO % 0.1 % (0.0-3.0); EOS # 0.1 (0.0-0.7); EOS % 0.7 % (1.5-5.0); GRAN # 6.1 (1.4-6.5); GRAN % 70.7 % (50.0-68.0); HEMOGLOBIN 15.8 g/dL (14.0-18.0); LYMPH # 1.4 (1.2-3.4); LYMPH % 15.6 % (22.0-35.0); MEAN CELL VOLUME 78.5 fl (80.0-105.0); MEAN CORPUSCULAR HEMOGLOBIN 27.3 pg (25.0-35.0); MEAN CORPUSCULAR HGB CONC 34.8 g/dl (31.0-37.0); MEAN PLATELET VOLUME 9.5 fl (7.0-11.0); MONO # 1.1 (0.1-0.6); MONO % 12.9 % (1.0-6.0); RBC 5.78 10^6/uL (3.5-6.1); RED CELL DISTRIBUTION WIDTH 16.7 % (11.5-14.5); WHITE BLOOD COUNT 8.6 10^3/ul (4.5-11.0)
[2018-06-30] MEDS ORDERED: Nitroglycerin 2% Ointment Foilpak UD TOP STA (11:14)
[2018-06-30 11:25] LABS: ALB/GLOB RATIO 1.3 (1.1-1.8); ALBUMIN 3.6 g/dL (3.0-4.8)
[2018-06-30 11:39] LABS: INR 2.61; PARTIAL THROMBOPLASTIN TIME 34.5 Seconds (25.1-36.5); PROTHROMBIN TIME 30.6 SECONDS (9.4-12.5); TROPONIN I 0.17 ng/mL
[2018-06-30] MEDS ORDERED: Morphine 2 mg/ml ISec IVP STA (11:41)
[2018-06-30] MEDS ORDERED: Iohexol 240 (50 ml) ONE (11:48)
--- NOTE | 2018-06-30 14:32 | US ---
Date of service: 06/30/2018 HISTORY: pain, ?gallstones COMPARISON: None. TECHNIQUE: Sonographic evaluation of the right upper quadrant of the abdomen. FINDINGS: LIVER: Measures 13.3 cm in length. Normal echogenicity of the liver parenchyma. No mass. No intrahepatic bile duct dilatation. GALLBLADDER: Cholecystectomy COMMON BILE DUCT: Measures 8.0 mm likely due to cholecystectomy and advanced age. No stones. No dilatation. PANCREAS: Unremarkable as visualized. No mass. No ductal dilatation. RIGHT KIDNEY: Measures 9.0 x 4.1 x 5.3 cm in length. Normal echogenicity. No calculus, mass, or hydronephrosis. AORTA: No aneurysmal dilatation. IVC: Unremarkable. OTHER FINDINGS: None . IMPRESSION: Cholecystectomy. Common bile duct slightly the prominent 8 mm though this is likely due to post cholecystectomy and advanced age.
--- NOTE | 2018-06-30 16:18 | CT ---
Date of service: 06/30/2018 PROCEDURE: CT Abdomen and Pelvis with Oral contrast. HISTORY: Right-sided abdominal pain. COMPARISON: Correlation made with prior CT chest dated 05/28/2018 which image the upper abdomen. Correlation also made with PET-CT scan dated 12/18/2017. TECHNIQUE: Contiguous axial images of the abdomen and pelvis performed of following oral contrast material. Additional 2D sagittal and coronal reformats generated. This CT exam was performed using one or more of the following dose reduction techniques: Automated exposure control, adjustment of the mA and/or kV according to patient size, and/or use of iterative reconstruction technique. Total exam DLP = 344.03 mGy-cm. . The examination is limited due to the lack of circulating intravenous contrast material as well as motion artifact. FINDINGS: LOWER THORAX: Re- demonstrated is a large mass lesion located in the posteromedial lower lung field. This could be secondary to a large primary neoplasm however clinical correlation recommended. Questionable small loculated left-sided pleural effusion Extensive centrilobular and panlobular emphysematous changes within both lung bases again noted. . Cardiomegaly. Small pericardial effusion. There is a small pericardial effusion. LIVER: Liver exhibits normal size. No obvious hepatic mass or collection seen on this limited noncontrast study GALLBLADDER AND BILE DUCTS: Cholecystectomy. PANCREAS: Pancreas appears atrophic and fatty replaced. SPLEEN: Unremarkable. No splenomegaly. ADRENALS: No obvious adrenal lesions. KIDNEYS AND URETERS: Both kidneys are present. Re- demonstrated is a large approximately 16.6 mm calcification posterior cortex mid pole left kidney. No evidence of hydronephrosis BLADDER: Urinary bladder incompletely distended which presumably accounts for slight thick-walled appearance. Muscular hypertrophy may contribute. Correlation with urinalysis recommended to exclude UTI. REPRODUCTIVE: Prostate gland measures approximately 4.8 cm in transverse dimension. APPENDIX: Appendix is not seen with any certainty on this study BOWEL: Evaluation of the bowel is somewhat limited due to the incomplete opacification and at fairly significant motion artifact on partially obscuring of loops of large and small bowel in the upper and mid abdomen. Stomach is distended with food debris/liquid contrast and air. Visualized loops of small bowel exhibit relatively normal contour and so far be determined through motion artifact. No evidence of acute mechanical small bowel obstruction with oral contrast material present in the proximal large bowel. . No gross mural wall thickening so far as can be seen within limitation of this study PERITONEUM: Unremarkable. No fluid collection. No free air. LYMPH NODES: Unremarkable. No enlarged lymph nodes. VASCULATURE: Minimal localized dilatation distal abdominal aorta measures approximately 2.6 cm. The aorta just proximal to this level measures 1.98 and just distally measures approximately 1.87 cm BONES: Multilevel degenerative spondylosis of the lower thoracic and lumbar spine. There is very minor levoscoliosis in the lower lumbar region. OTHER FINDINGS: None. IMPRESSION: Limited motion degraded study. Study is further limited by the lack of circulating intravenous contrast material. Cardiomegaly with small pericardial effusion. Re- demonstrated is a large mass lesion left lung base could represent on primary neoplasm. There is associated small loculated pleural effusion. Cholecystectomy. No evidence of acute mechanical bowel obstruction however evaluation of the bowel is quite limited particularly the on loops of small large bowel in the upper and mid abdomen. 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 Re- demonstrated is a calcification posterior cortex mid pole left kidney
[2018-06-30 17:22] LABS: URINE APPEARANCE CLEAR (CLEAR); URINE BILIRUBIN NEGATIVE (NEGATIVE); URINE BLOOD NEGATIVE (NEGATIVE); URINE COLOR DARK YELLOW (YELLOW); URINE GLUCOSE (UA) NEGATIVE (NEGATIVE); URINE LEUKOCYTE ESTERASE TRACE Leu/uL (NEGATIVE); URINE PROTEIN NEGATIVE mg/dL (<30 mg/dL); URINE UROBILINOGEN 0.2 E.U./dL (<1 E.U./dL)
--- NOTE | 2018-06-30 17:26 | RAD ---
Date of service: 06/30/2018 HISTORY: CP COMPARISON: Comparison chest 05/26/2018. Comparison also made with concurrent CT scan abdomen which imaged both lung bases FINDINGS: LUNGS: Previously noted left lower lobe mass density and suspected loculated pleural effusion left lung base poorly seen on this study. Please refer to concurrent CT scan of the abdomen pelvis which image both lung bases. PLEURA: No significant pleural effusion identified, no pneumothorax apparent. CARDIOVASCULAR: Small pericardial effusion poorly seen. Please refer to concurrent CT scan of the abdomen pelvis OSSEOUS STRUCTURES: No significant abnormalities. VISUALIZED UPPER ABDOMEN: Normal. OTHER FINDINGS: None. IMPRESSION: Previously noted left lower lobe mass density and suspected loculated pleural effusion left lung base poorly seen on this study. Please refer to concurrent CT scan of the abdomen pelvis which image both lung bases. Additionally, small pericardial effusion seen on CT scan not appreciated on this study
[2018-06-30 17:29] LABS: URINE BACTERIA TRACE (NEG); URINE HYALINE CAST 0 - 2 /hpf; URINE RBC NEGATIVE /hpf (0-2)
[2018-06-30] MEDS ORDERED: Albuterol-Ipratrop 3 mg / 0.5 (3 ml) UD IH STA (20:19)
[2018-06-30] MEDS ORDERED: Albuterol-Ipratrop 3 mg / 0.5 (3 ml) UD IH PRN (20:19)
[2018-06-30 22:39] VITALS: BMI 23.0
[2018-06-30] MEDS ORDERED: Pneumococcal 23-Valent Vaccine IM ONE (22:39)
[2018-07-01] MEDS: Albuterol-Ipratrop 3 mg / 0.5 (3 ml) UD IH SCH ×2 (01:13→07:34)
--- NOTE | 2018-07-01 01:31 | HP ---
Copied To: Kosta Houston DO Attending MD: Kosta Houston DO HISTORY OF PRESENT ILLNESS: I know Tre very well from house calls and I saw him in the emergency room at [facility]. He is a very nice 87-year-old man who presents with abdominal pain and chest pain for the last 2 days. PAST MEDICAL HISTORY: He has had a past medical history of recent NSTEMI, COPD on home O2. He has had lung cancer, DVT 9 years ago. He has dementia with pain to the midepigastric region and the left chest, gas like cramping radiate to his lower abdomen and groin. He has also been urinating less, occasional cough, emphysema, pneumonia history, TIAs, kidney stones, renal failure in the past, lung cancer, back pain chronic, gastroesophageal reflux disease, cholecystectomy, cardiac catheterizations in the past. SOCIAL HISTORY: Former smoker, 40-pack year history, quit more than 10 years ago. No alcohol. No substance abuse. ALLERGIES: NO KNOWN DRUG ALLERGIES. MEDICATIONS: He takes Coumadin, albuterol, vitamin D, Lasix, Toprol, Ultram. REVIEW OF SYSTEMS: He is tired at his baseline. No acute weight changes, fever or night sweats. No acute vision changes. No sore throat. No rhinorrhea. No hearing changes. There is shortness of breath. There is a cough. No sputum or wheezing. There is dyspnea on exertion. No chest pain or palpitations, but he did tell me he had left-sided chest pain, abdominal pain. No stool changes with diarrhea, nausea or vomiting. No problems urinating. No arthralgias. He did get back pain from time to time. No apparent rashes or ulcers. No headache, dizziness, or speech changes. No sweating. No swollen glands that he knows of. Not anxious. Not depressed. PHYSICAL EXAMINATION: VITAL SIGNS: He has 98 temperature, 87 pulse, 22 respiratory rate, 99/58 blood pressure, 92% O2 sat. GENERAL: He is comfortable lying on the gurney. His chest pain at this point has gone. He was not feeling well earlier. He was in moderate distress. He is alert and oriented x3. HEENT: Head is atraumatic, normocephalic. Pupils equal and reactive to light. Extraocular muscles intact. Throat is moist. NECK: Supple. HEART: Regular rate. Normal S1, S2. LUNGS: Decreased breath sounds but clear to auscultation. No wheezes, no rhonchi, no rales. ABDOMEN: Soft, nontender. Positive bowel sounds. No guarding, no rebound, no CVA tenderness. He had epigastric tenderness earlier and now he did not. EXTREMITIES: Have no edema. NEUROLOGIC: Speech is normal. SKIN: Warm and dry. PSYCHIATRIC: Alert and oriented x3 at this time, but sometimes he could be confused. LYMPHATICS: Thyroid midline. No palpable appreciable lymphadenopathy. LABORATORY DATA: He had multiple tests performed. He had a CT scan of the abdomen and pelvis, did not show small bowel obstruction. He has small abdominal aortic aneurysm, 1-2 mm. Gallbladder has been removed. Chest x-ray is showing the left lower lobe mass, which is a cancer. He has a urine that is clean. White count 8.6, hemoglobin 15.8, hematocrit 45.4, platelets 196. INR is 2.61. He has a 140 sodium, potassium 4.3, BUN 28, creatinine 1.7, GFR is 38, sugar is 103, calcium is 12 high, total bili is 0.8, AST is 23, ALT is 29, alk phos 64. Troponin I 0.17, 0.17, waiting for the third one. Total protein is 6.4, lipase is 70. ASSESSMENT AND PLAN: He is definitely having a non-ST elevation myocardial infarction. Cardiology is consulted. We put on his regular medication. The abdominal pain has subsided. He will have a consult with Cardiology. He will be put back on his Coumadin, albuterol, Lasix, Exelon patch, metoprolol, tramadol, albuterol, vitamin D and we will keep a very close eye on that. He is also on oxygen and he is very comfortable. He is also in the hospital observation level of care. Kosta Houston DO
[2018-07-01 06:27] VITALS: BP 112/69; RESP 19; TEMP 97.9; O2SAT 92
[2018-07-01 07:37] LABS: MEAN CELL VOLUME 78.2 fl (80.0-105.0); MEAN CORPUSCULAR HEMOGLOBIN 26.6 pg (25.0-35.0); RBC 5.64 10^6/uL (3.5-6.1); RED CELL DISTRIBUTION WIDTH 16.7 % (11.5-14.5)
[2018-07-01 07:41] LABS: INR 2.36; PROTHROMBIN TIME 27.6 SECONDS (9.4-12.5)
[2018-07-01 07:51] LABS: ALB/GLOB RATIO 1.3 (1.1-1.8); ALBUMIN 3.1 g/dL (3.0-4.8); CALCIUM 11.8 mg/dL (8.4-10.5)
[2018-07-01 08:00] LABS: TROPONIN I 0.11 ng/mL
[2018-07-01] MEDS ORDERED: Albuterol 0.083% Inhal Sol (2.5 mg/3 mL) UD IH SCH (08:00)
[2018-07-01] MEDS ORDERED: Metoprolol Succinate 25 mg XL Tab PO SCH (10:00)
[2018-07-01] MEDS ORDERED: Albuterol HFA 90 mcg/actuation (8 g) IH SCH (10:00)
[2018-07-01] MEDS ORDERED: Cholecalciferol 1,000 INTLU TAB PO SCH (10:00)
--- NOTE | 2018-07-01 11:24 | CARD ---
APPROVED REPORT Date of service: 06/30/2018 EKG Measurement Heart [id number] <Conclusion> Sinus rhythm with 1st degree AV block Right bundle branch block Abnormal ECG
[2018-07-01 11:49] VITALS: PULSE 93
--- NOTE | 2018-07-02 04:09 | DS ---
Copied To: Kosta Houston DO Attending MD: Kosta Houston DO HISTORY OF PRESENT ILLNESS: Tre Ribeiro will probably be discharged this afternoon. He is comfortable in bed. No chest pain, shortness of breath or abdominal pain. He ate very well. He is on albuterol, Coumadin, DuoNeb, Exelon, Lasix, Toprol, Ultram and vitamin D. We will hold the Lasix and metoprolol if his blood pressure is below 100. PHYSICAL EXAMINATION: VITAL SIGNS: He has a 97.9 temperature, 86 pulse, 112/69 blood pressure, 19 respiratory rate, 92% O2 sat on 2 liters. HEAD: Atraumatic, normocephalic. GENERAL: He is alert and oriented x3 right now, he can get confused at times, but he is pleasant. He wants to go home. No chest pain or shortness of breath. No abdominal pain. HEART: Regular rate. LUNGS: Clear to auscultation with decreased breath sounds. ABDOMEN: Soft, nontender. Positive bowel sounds. EXTREMITIES: Have no edema. ASSESSMENT AND PLAN: I discussed this with the cord cutter this morning. I do not think they have any plans for a cardiac catheterization. He does have a persistent left lower lung mass, which is a cancer and has not changed in size in about a year, which is good. LABORATORY DATA: He has a 7 white count, 15 hemoglobin, 44.1 hematocrit with 179 platelets. His INR is 2.36. He is on Coumadin. He has a 138 sodium, potassium 4.4. BUN is 26; creatinine 1.4, better. GFR is 48. Sugar is 99. Calcium 11.8, total bili is 1, AST is 16, ALT is 29, alk phos 62. His troponin came down to 0.11. His total protein is 5.5. Everything is trending well. I think this is a of opportunity. I will discharge him home. See him on house calls. Continue with the same medications he was taking at home. I discussed with the cord cutter and the nurse and the family. Kosta Houston DO
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
== END 2018-07-01 11:54 | disposition home or self-care (01) ==
LOC: ED 10:35 → ERH 17:02 → 2RNO 18:57
PROVIDERS: ADMIT Family Medicine; ATTEND Family Medicine
DX: R07.9 Chest pain, unspecified (principal); R06.02 Shortness of breath; R10.9 Unspecified abdominal pain; J90 Pleural effusion, not elsewhere classified; I25.10 Atherosclerotic heart disease of native coronary artery without angina pectoris; D64.9 Anemia, unspecified; I27.20 Pulmonary hypertension, unspecified; E78.00 Pure hypercholesterolemia, unspecified; E78.5 Hyperlipidemia, unspecified; F03.90 Unspecified dementia, unspecified severity, without behavioral disturbance, psychotic disturbance, mood disturbance, and anxiety; I10 Essential (primary) hypertension; J43.9 Emphysema, unspecified; K21.9 Gastro-esophageal reflux disease without esophagitis; I65.23 Occlusion and stenosis of bilateral carotid arteries; I25.2 Old myocardial infarction; Z85.118 Personal history of other malignant neoplasm of bronchus and lung; Z79.01 Long term (current) use of anticoagulants; Z86.718 Personal history of other venous thrombosis and embolism; Z99.81 Dependence on supplemental oxygen; Z87.891 Personal history of nicotine dependence; Z86.73 Personal history of transient ischemic attack (TIA), and cerebral infarction without residual deficits; Z87.01 Personal history of pneumonia (recurrent)
CPT/HCPCS: 36415; 71045; 74176; 76705; 80053; 81001; 83690; 84484; 85025; 85027; 85610; 85730; 87086; 93005; 94640; 96374; 99285; G0378; J2270; Q9966

== ENCOUNTER 2018-08-10 15:46 | Observation (INO) | payer MEDICARE, OTHER, BC ==
[2018-08-10] MEDS ORDERED: Albuterol-Ipratrop 3 mg / 0.5 (3 ml) UD IH STA (16:00)
[2018-08-10 16:02] VITALS: BMI 21.7
[2018-08-10] MEDS ORDERED: Morphine 4 mg/ml ISec IVP STA (16:02)
--- NOTE | 2018-08-10 16:10 | ED PDOC ---
Arrival/HPI - General Chief Complaint: Lower Extremity Problem/Injury Time Seen by Provider: 08/10/18 15:47 Historian: Patient, Family (daughter and granddaughter) - History of Present Illness Time/Duration: Prior to Arrival Symptom Onset: Sudden Symptom Course: Unchanged Quality: Aching Severity Level: Severe Activities at Onset: Rest Associated Symptoms (Text): 08/10/18 16:07 Patient was sitting at home earlier today and developed acute onset of right lower extremity pain. There is a history of lung cancer. The patient and family have decided not to treat the cancer. History of DVT in the right lower extremity. The pain is in the posterior leg. He also complains of numbness in the posterior leg. He is more short of breath than usual. He is on chronic home oxygen therapy. There is a chronic cough no different from usual. No chest pain. No fever. No sputum. Past Medical History - Infectious Disease Hx of Infectious Diseases: None - Cardiac Hx Cardiac Disorders: Yes (CAD) Other/Comment: DVT rt leg - Pulmonary Hx Respiratory Disorders: Yes (HOME O2) Hx Chronic Obstructive Pulmonary Disease (COPD): Yes Hx Emphysema: Yes Hx Pneumonia: Yes - Neurological Hx Neurological Disorder: No - HEENT Hx HEENT Disorder: Yes (eyeglasses) - Renal Hx Renal Disorder: Yes Hx Kidney Stones: Yes Hx Renal Failure: Yes - Endocrine/Metabolic Hx Endocrine Disorders: No - Hematological/Oncological Hx Blood Disorders: Yes Hx Cancer: Yes (LUNG CA NO [place]) - Integumentary Hx Dermatological Disorder: No - Musculoskeletal/Rheumatological Hx Back Pain: Yes (chronic mid and lower back) - Gastrointestinal Hx Gastrointestinal Disorders: Yes Hx Gastroesophageal Reflux: Yes - Genitourinary/Gynecological Hx Genitourinary Disorders: Yes (HEISTANCY) - Psychiatric Hx Psychophysiologic Disorder: No Hx Substance Use: No - Surgical History Hx Cardiac Catheterization: Yes Hx Cholecystectomy: Yes - Anesthesia Hx Anesthesia: No Family/Social History - Physician Review Nursing Documentation Reviewed: Yes Family/Social History: Unknown Family HX Smoking Status: Former Smoker Hx Alcohol Use: No Hx Substance Use: No Allergies/Home Meds Allergies/Adverse Reactions: Allergies No Known Allergies Allergy (Verified 08/10/18 16:06) Home Medications: Home Meds Medication Instructions Recorded Confirmed RX: Warfarin [Coumadin] 3 mg PO DAILY 03/31/16 07/01/18 Metoprolol Succinate [Toprol Xl] 25 mg PO DAILY 05/26/18 07/01/18 RX: Albuterol HFA [Ventolin HFA 90 0.09 mg IH BID 05/26/18 07/01/18 mcg/actuation (8 g)] RX: Albuterol/Ipratropium [Duoneb 3 ml IH BID 05/26/18 06/30/18 3 mg/0.5 mg (3 ml) UD] RX: Cholecalciferol [Vitamin D 2,000 iu PO DAILY 05/26/18 06/30/18 1000 IU] RX: Furosemide [Lasix] 20 mg PO DAILY 05/26/18 07/01/18 RX: traMADol [Ultram] 50 mg PO PRN PRN 05/26/18 07/01/18 Review of Systems - Physician Review All systems were reviewed & negative as marked: Yes - Review of Systems Constitutional: Fatigue. absent: Fevers Respiratory: SOB, Cough, Wheezing. absent: Sputum Cardiovascular: absent: Chest Pain, Palpitations, Syncope Gastrointestinal: absent: Abdominal Pain, Nausea, Vomiting Skin: Normal Neurological: Other (numbness) Psychiatric: Normal Physical Exam Vital Signs Pulse Resp BP Pulse Ox 08/10/18 16:03 95 H 18 135/63 87 L Temperature: Afebrile Blood Pressure: Normal Pulse: Regular Respiratory Rate: Tachypneic Appearance: Positive for: Well-Appearing, Non-Toxic, Uncomfortable, Other (accessory muscle use and retractions) Pain Distress: Moderate Mental Status: Positive for: Alert and Oriented X 3 - Systems Exam Head: Present: Atraumatic, Normocephalic Pupils: Present: PERRL Extroacular Muscles: Present: EOMI Conjunctiva: Present: Normal Mouth: Present: Moist Mucous Membranes Pharnyx: No: ERYTHEMA, EXUDATE, TONSILS ENLARGED Respiratory/Chest: Present: Respiratory Distress, Accessory Muscle Use, Wheezes, Decreased Breath Sounds, Retracting, Rhonchi, Tachypneic. No: Rales Cardiovascular: Present: Regular Rate and Rhythm, Normal S1, S2. No: Murmurs Abdomen: No: Tenderness, Distention, Peritoneal Signs, Rebound, Guarding Back: Present: Normal Inspection Upper Extremity: Present: Normal Inspection. No: Cyanosis, Edema Lower Extremity: Present: Normal Inspection, CALF TENDERNESS, NORMAL PULSES, Normal ROM, Tenderness, Neurovascularly Intact. No: Edema, Cyanosis, Massiel's Sign, Swelling, Erythema, Deformity Neurological: Present: GCS=15, CN II-XII Intact, Speech Normal, Motor Func Grossly Intact Skin: Present: Warm, Dry, Normal Color. No: Rashes Psychiatric: Present: Alert, Oriented x 3, Normal Insight, Normal Concentration Medical Decision Making ED Course and Treatment: 08/10/18 16:41 EKG shows normal sinus rhythm with a primary AV block and a right bundle branch block with multifocal PVCs and nonspecific ST and T-wave changes. 08/10/18 20:24 discussed in detail with Dr. Houston who requests consults with cardiology and pulmonology - RAD Interpretation Narrative RAD Interpretations (Text): 08/10/18 20:17 CTA chest reviewed by radiologist, shows: No evidence of pulmonary embolic disease to the main pulmonary arteries or their main branches. Moderate sized left pleural effusion. Soft tissue density and n eoplasm measuring approximately 7 x 5.2 x 4.8 cm suspected at the medial aspect left lower lung and smaller lobulated soft tissue density densityand neoplasm at the medial aspect left upper lung. Multichamber enlargement of the heart. Extensive bullos changes both lungs. Clinical correlation advised. Radiology Orders: 08/10/18 16:00 DUPLEX LOWER EXTRM VEIN BILAT [US] Stat 08/10/18 16:01 CHEST PORTABLE [RAD] Stat X-ray chest one view as read by the radiologist shows a stable left pleural effusion and left mass. Bilateral lower extremity Doppler shows positive right-sided popliteal DVT as read by the radiologist. Crop Production Advisor: Radiologist - Medication Orders Current Medication Orders: Discontinued Medications Albuterol/Ipratropium (Duoneb 3 Mg/0.5 Mg (3 Ml) Ud) 3 ml IH STAT STA Stop: 08/10/18 16:01 Morphine Sulfate (Morphine) 4 mg IVP STAT STA Stop: 08/10/18 16:03 Disposition/Present on Arrival - Present on Arrival Any Indicators Present on Arrival: No History of DVT/PE: Yes History of Uncontrolled Diabetes: No Urinary Catheter: No History of Decub. Ulcer: No History Surgical Site Infection Following: None - Disposition Have Diagnosis and Disposition been Completed?: Yes Diagnosis: Elevated troponin, Dyspnea, Renal insufficiency, Elevated brain natriuretic peptide (BNP) level, Deep vein thrombosis Disposition: HOSPITALIZED Disposition Time: 20:25 Patient Plan: Observation, Telemetry Patient Problems: Current Active Problems Problem Status Onset Deep vein thrombosis Acute Dyspnea Acute Elevated brain natriuretic peptide (BNP) level Acute Elevated troponin Acute Renal insufficiency Acute Condition: FAIR Referrals: Kosta Houston DO [Primary Care Provider] - Follow up with primary Forms: Divshot (Maltese)
--- NOTE | 2018-08-10 16:23 | RAD ---
Date of service: 08/10/2018 HISTORY: Shortness of breath. COMPARISON: 06/30/2018 FINDINGS: LUNGS: Persistent lower lobe infiltrate/mass PLEURA: Stable left pleural effusion. CARDIOVASCULAR: No radiographic findings to suggest acute or significant cardiovascular disease. OSSEOUS STRUCTURES: No significant abnormalities. VISUALIZED UPPER ABDOMEN: Normal. OTHER FINDINGS: None. IMPRESSION: Stable findings left darren thorax including left lower lobe infiltrate inseparable from left pleural effusion. No significant changes.
[2018-08-10 16:36] LABS: ARTERIAL BLOOD GAS HCO3 18.1 mmol/L (21-28); ARTERIAL BLOOD GAS HEMOGLOBIN 14.7 g/dL (11.7-17.4); ARTERIAL BLOOD GAS O2 CAPACITY 20.1 mL/dl (16-24); ARTERIAL BLOOD GAS O2 SAT 94.5 % (95-98); ARTERIAL BLOOD GAS PCO2 26 mm/Hg (35-45); ARTERIAL BLOOD GAS PH 7.45 (7.35-7.45); ARTERIAL BLOOD GAS TCO2 18.9 mmol.L (22-28)
[2018-08-10 17:16] LABS: BASO # 0.02 K/mm3 (0.0-2.0); BASO % 0.3 % (0.0-3.0); EOS # 0.1 (0.0-0.7); GRAN # 5.2 (1.4-6.5); GRAN % 67.4 % (50.0-68.0); HEMOGLOBIN 14.8 g/dL (14.0-18.0); LYMPH # 1.4 (1.2-3.4); LYMPH % 17.7 % (22.0-35.0); MEAN CELL VOLUME 81.5 fl (80.0-105.0); MEAN CORPUSCULAR HEMOGLOBIN 27.4 pg (25.0-35.0); MEAN CORPUSCULAR HGB CONC 33.6 g/dl (31.0-37.0); MEAN PLATELET VOLUME 10.6 fl (7.0-11.0); MONO # 1.1 (0.1-0.6); MONO % 13.6 % (1.0-6.0); RBC 5.4 10^6/uL (3.5-6.1); RED CELL DISTRIBUTION WIDTH 17.9 % (11.5-14.5); WHITE BLOOD COUNT 7.7 10^3/ul (4.5-11.0)
[2018-08-10 17:50] LABS: INR 2.62; PROTHROMBIN TIME 30.5 SECONDS (9.4-12.5)
[2018-08-10 17:51] LABS: ALB/GLOB RATIO 1.3 (1.1-1.8); ALBUMIN 3.6 g/dL (3.0-4.8)
[2018-08-10 18:07] LABS: TROPONIN I 0.14 ng/mL
[2018-08-10] MEDS ORDERED: Iohexol 350 MG/100 ML VIAL ONE (18:09)
[2018-08-10] MEDS ORDERED: Enoxaparin 40 mg Syringe SC STA (20:15)
[2018-08-10] MEDS ORDERED: Influenza Vaccine 60 mcg/0.5 mL SYR (4YR UP) IM ONE (22:45)
[2018-08-10] MEDS ORDERED: Pneumococcal 23-Valent Vaccine IM ONE (22:45)
[2018-08-10] MEDS ORDERED: Simethicone 80 mg Chewtab PO PRN (23:10)
[2018-08-11] MEDS ORDERED: Magnesium Oxide 400 mg Tab UD PO ONE (02:30)
[2018-08-11] MEDS: Budesonide 0.5 mg/2 ml Inhal Susp UD IH SCH ×2 (07:09→19:55)
[2018-08-11] MEDS: Arformoterol 15 mcg/2 ml Inh Sol IH SCH ×2 (07:09→19:55)
--- NOTE | 2018-08-11 07:38 | CON ---
DATE: 08/11/2018 PULMONARY CONSULTATION: The pulmonary consultation is requested by Dr. Houston. REASON FOR PULMONARY CONSULTATION: Chronic obstructive pulmonary disease. HISTORY OF PRESENT ILLNESS: History is obtained via extensive discussion with the night nurse. I have also discussed the case with the patient at length, and reviewed the chart at length. The patient is an 87-year-old male, with past medical history significant for presumed lung cancer (family refused any/all workup and treatment after a highly positive PET scan), advanced chronic obstructive pulmonary disease (on home oxygen), previous deep venous thrombosis, coronary artery disease, myocardial infarction in the past, who presents to [facility] with worsening pain and swelling of his right lower extremity. In the emergency room, the patient was noted to have a right deep venous thrombosis. He was thus admitted for additional evaluation. Again, I did discuss the case with the night nurse at length. The patient is not short of breath at rest. He does have chronic dyspnea on exertion - unchanged. He also has a chronic cough with occasional sputum production - also unchanged. No history of chest pain, coughing up of blood or chest pain - made worse with deep respirations. There is no history of temperatures, chills or infectious exposure. There is no history of night sweats. There is a history of decreased appetite with weight loss over the past 6 months. No history of syncope or diaphoresis. No history of recent travel or trauma. REVIEW OF SYSTEMS: No history of nausea, vomiting or diarrhea. No acute urinary symptoms. No new neurologic complaints. Rest of the review of systems is negative. ALLERGIES: NO KNOWN ALLERGIES. SOCIAL HISTORY: Positive for tobacco. Negative for alcohol. FAMILY HISTORY: No inheritable diseases. HOME MEDICATIONS: Include Ultram, Coumadin, Toprol, Lasix, DuoNebs. PHYSICAL EXAMINATION: GENERAL: The patient appears comfortable this morning. He is not short of breath at rest. VITAL SIGNS: Temperature is 98.3, pulse 91, respirations 18/20, blood pressure 128/84. Oxygen saturation on nasal cannula is 94%. HEENT: Normocephalic, atraumatic. No JVD. CARDIOVASCULAR: Systolic ejection murmur at the lower left sternal border. No S3 gallop. LUNGS: Decreased breath sounds at the bases. Minimal rhonchi. No wheezing. EXTREMITIES: There is mild edema noted to both lower extremities. There is no cyanosis or clubbing. The calves are nontender to palpation this morning. GI: Abdomen is soft, nontender and nondistended. Bowel sounds are positive. SKIN: No acute rash. NEUROLOGIC: Limited at the present time. PERTINENT LABORATORY DATA: Doppler ultrasound was done of the right lower extremity. There is a positive right-sided popliteal deep venous thrombosis noted. CAT scan of the chest was also done. It was done as an angiogram protocol. There is no pulmonary embolism seen. There is a large left lower lobe lung mass noted. However, new findings - compared to previous CAT scans - include a new left apical lung mass, as well as a small to moderate left pleural effusion. CBC: White count 7.7K, hemoglobin 14.8, hematocrit 44, platelets of 155,000. Arterial blood gas was done on nasal cannula. Results are: PH 7.45, pCO2 of 26, pO2 of 62. Complete metabolic profile: Chloride 108, carbon dioxide 20, BUN 31, calcium 12, magnesium 1.5, troponin 0.14. B-type natriuretic peptide 7730. Rest of the metabolic profile is within normal limits. IMPRESSION: 1. Left deep venous thrombosis. 2. Advanced lung cancer. 3. Advanced chronic obstructive pulmonary disease, on home oxygen. 4. Coronary artery disease, positive troponin. 5. Hypoxemia. PLAN: Again, I did discuss the case with the night nurse at length. I have also reviewed the chart at length, and discussed the case with the patient at length. The patient is not an adequate historian. The patient presents to [facility] with a 1-day history of increasing right lower extremity pain. As above, the patient was diagnosed with an acute deep venous thrombosis in the emergency room, and subsequently admitted. As above, I do know this patient - followed in our office. He has had multiple CAT scans in the past. The newest CAT scan is noted above. Unfortunately, there is now a left upper lobe lung mass (new), as well as a small to moderate left pleural effusion. These are new findings compared to the previous CAT scans, and PET scan. Interesting to note, that the patient is on Coumadin as an outpatient. His INR is therapeutic (2.62). However, given the above history (and advanced malignancy), I will start therapeutic Lovenox. On physical exam, there is only minimal bronchospasm noted. In addition, there is only a mild increase in the alveolar-arterial gradient. I will start the patient on Brovana nebulizer treatments and inhaled Pulmicort this morning. The patient does feel better this morning and is clinically improved. However, the future status/prognosis for this elderly patient remains poor. I will discuss the above with the attending physician later this morning. Thank you very much for this pulmonary consultation. Kris Corbin MD MTDD
[2018-08-11] MEDS ORDERED: Albuterol 0.042% Inhal Sol (1.25 mg/3 mL) UD IH SCH (08:00)
[2018-08-11] MEDS: Metoprolol Succinate 25 mg XL Tab PO SCH (09:00)
[2018-08-11] MEDS: Enoxaparin 80 mg Syringe SC SCH ×2 (09:01→21:17)
--- NOTE | 2018-08-11 09:04 | CARD ---
APPROVED REPORT Date of service: 08/10/2018 EKG Measurement Heart [id number] <Conclusion> Sinus rhythm with 1st degree AV block with occasional premature ventricular complexes Right bundle branch block LAHB Trifasicular block STTW changes C/W ECG 06/30/18: PVCs are new
--- NOTE | 2018-08-11 10:35 | CT ---
Date of service: 08/10/2018 PROCEDURE: CT Chest with contrast (Pulmonary Angiogram) HISTORY: elevated dimer COMPARISON: None available. TECHNIQUE: Axial computed tomography images were obtained of the chest in the pulmonary arterial phase of enhancement. Coronal and sagittal reformatted images were created and reviewed. Intravenous contrast dose: 100 cc Omnipaque 350 Mean Hounsfield value in the main pulmonary artery: 417.72 Radiation dose: Total exam DLP = 591.56 mGy-cm. This CT exam was performed using one or more of the following dose reduction techniques: Automated exposure control, adjustment of the mA and/or kV according to patient size, and/or use of iterative reconstruction technique. FINDINGS: PULMONARY ARTERIES: Unremarkable. No pulmonary embolism. AORTA: No acute findings. No thoracic aortic aneurysm. LUNGS: Vertebral and left upper lobe apical mass 2.5 x 3.3 cm. Additional lung mass left lower lobe measures 5.3 x 4.9 cm. This is indistinguishable from what appears to be postobstructive pneumonitis affecting the left lower lobe. No additional pulmonary nodules or masses. Moderate-severe centrilobular emphysematous change. Five PLEURAL SPACES: Moderate left pleural effusion. HEART: Unremarkable. No cardiomegaly. No significant pericardial effusion. LYMPH NODES: No lymphadenopathy. BONES, CHEST WALL: Kyphoscoliosis, secondary moderate degenerative change.. No fracture or destructive lesion OTHER FINDINGS: Unremarkable. IMPRESSION: Unremarkable CT pulmonary angiogram. No pulmonary embolus. Tumor masses in the left upper lobe and left lower lobe. Additional benign and/or incidental findings described above. Concordant results (preliminary interpretation) provided by [facility]. Procedure Completed: 19:18 Preliminary Report: Dictated and Authenticated: 19:52. Final Interpretation: 10:33. August 11, 2018.
[2018-08-11] MEDS ORDERED: Morphine 2 mg/ml ISec IVP PRN (11:47)
--- NOTE | 2018-08-11 18:09 | CON ---
DATE: 08/11/2018 CARDIOLOGY CONSULT REASON FOR CONSULTATION: Recurrent DVT as well as shortness of breath. HISTORY OF PRESENT ILLNESS: The history was obtained from the patient and his daughter who was at the bedside. The patient is an 87 years old male who has a history of lung cancer and has been treated of right lower extremity DVT in the past. According to the daughter, the patient has been having DVTs for the past 4 years and is on a blood thinner for that reason. The patient also has a history of chronic obstructive lung disease and nasal O2 at home. The patient denies any history of coronary stenting in the past and the most recent stress test was in 2016, with Lexiscan, which was essentially normal SPECT myocardial perfusion study with normal gated wall motion. SOCIAL HISTORY: The patient is a smoker. He smokes one pack per day. He lives with his daughter. MEDICATIONS: Brovana 15 mcg inhalation every 12 hours, Colace 100 mg twice a day, Coumadin 3 mg once a day, Lovenox 70 mg subcutaneously twice a day, Toprol XL 25 mg once a day, Ultram 50 mg every 6 hours p.r.n. REVIEW OF SYSTEMS: No hemoptysis, no fever or chills, and no dizziness or syncope. PHYSICAL EXAMINATION GENERAL: The patient is an elderly male who does not appear to be in acute distress. VITAL SIGNS: Blood pressure 92/63, heart rate 76, temperature 97.4, and respirations 18. HEENT: Normocephalic. CHEST: Diffuse bilateral rhonchi. HEART: S1 and S2, regular. ABDOMEN: Soft. EXTREMITIES: 1+ pitting edema. LABORATORY DATA: Hemoglobin and hematocrit 14.8 and 44. White count and platelet count are within normal limit. SMA-7: Sodium 137, potassium 4, chloride 108, CO2 of 20. Glucose 104. BUN 31, creatinine 1.5. Magnesium is below normal at 1.5. Troponin 0.14 and proBNP is 7730. INR is 2.62 and PTT 34. Chest x-ray revealed prominent bronchovascular markings. No acute findings. Chest CT angio with PE protocol revealed unremarkable CT pulmonary angiogram. No pulmonary embolus. Tumor mass in the left upper lobe and left lower lobe. Preliminary report of venous Doppler of the lower extremity was positive; however, the official report is still pending. 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 The echocardiographic study performed in 05/2018, which revealed ejection fraction in the range of 50% to 55%, ventricular systolic function and severe pulmonary hypertension. ASSESSMENT: 1. 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 2. Right ventricular heart failure. 3. Lung cancer. 4. Recurrent deep venous thrombosis. RECOMMENDATIONS: Continue Coumadin 3 mg orally daily, therapeutic subcutaneous Lovenox at 70 mg every 12 hours until therapeutic INR is achieved, Toprol XL at 25 mg once a day. A conservative medical approach is recommended. I did review the EKG which revealed sinus rhythm, bifascicular block, right bundle-branch block with left anterior fascicular block, PVCs, first-degree AV block, and no acute ST-T wave changes that explain the mildly elevated troponin. Juan Dietz MD
--- NOTE | 2018-08-12 02:46 | HP ---
HISTORY OF PRESENT ILLNESS: I know Tre very well for many years. I have been doing house call on him for a while. He has a known left lung cancer and he comes into the emergency room after developing acute right lower extremity pain. The family decided not to treat the cancer. He has a history of a DVT in the right lower extremity, it feels like the same thing. He is also more short of breath than usual. He is on chronic home oxygen about 3 L to get him at 90%. PAST MEDICAL HISTORY: Lung cancer, COPD, emphysema, pneumonia, oxygen-dependent, had a history of DVT in the right leg in the past, wears eyeglasses, kidney stones, renal failure in the past, lung cancer with no treatment, chronic low and middle lower back pain, he has GERD, urinary tract problems. No substance abuse. PAST SURGICAL HISTORY: He had a cholecystectomy. He had a cardiac cath. FAMILY HISTORY: Hypertension in the family. SOCIAL HISTORY: Former smoker. No alcohol. No drugs. ALLERGIES: NO KNOWN DRUG ALLERGIES. MEDICATIONS: He is on Coumadin, Toprol, Ventolin, DuoNebs, vitamin D, Lasix and Ultram. REVIEW OF SYSTEMS: At this time, he is resting in bed. His daughter is with him. He is fatigued. He is short of breath. He has got a cough. He is wheezing. No chest pain. No palpitations. No abdominal pain, nausea, vomiting. No skin issues that he knows of. He has got some numbness of the left calf and leg. Not anxious. Not depressed. PHYSICAL EXAMINATION: VITAL SIGNS: He has 95 pulse, 18 respiratory rate, 135/63 blood pressure and 87% O2 sat in the emergency room. GENERAL: He is well appearing, he is nontoxic, uncomfortable, moderate distress. Alert and oriented x3. HEENT: Head is atraumatic, normocephalic. Extraocular muscles are intact. Pupils equal, reactive to light and accommodation. Throat is moist. NECK: Supple. HEART: Regular rate. A little bit fast. Normal S1 and S2. LUNGS: Decreased breath sounds bilaterally. Left side worse than the right side. No wheezes or rhonchi. ABDOMEN: Soft, nontender. Positive bowel sounds. No guarding. No rebound. No CVA tenderness. EXTREMITIES: The left calf is tender, swollen. NEUROLOGIC: GCS is 15. Cranial nerves II through XII grossly intact. Speech is normal. SKIN: Warm and dry. PSYCHIATRIC: Alert and oriented x2. He has got a little bit of dementia. LABORATORY DATA: He had multiple tests done. He has a 137 sodium, potassium is 4, BUN 31, creatinine 1.5, GFR is 44, sugar is 104, calcium is 12, magnesium is 1.5, AST is 22, ALT is 19, alk phos 68, lactate dehydrogenase is 477, troponin I is 0.14, BNP is high at 7730. I changed his Lasix from p.o. to IV. Total protein 6.5. His blood gas: He has got a 7.45 ABG, pCO2 is 26, O2 is 62, he is only satting at 91. INR is at 2.62. D-dimer is 767. White count 7.7, hemoglobin 14.8, hematocrit is 44, platelets of 155. He had a chest CT, which shows a tumor masses in left upper and left lower lobes. IMPRESSION: He is going to be in the hospital. He has a Pulmonary consult, Cardiology consult. He is on Lovenox, his regular medications, Lasix IV. Discussed with the daughter. He is currently in observation level of care. they want to be with after I see Dr. Nascimento's note, the spaghetti machine operator. Kosta Houston DO [facility]
[2018-08-12 05:17] VITALS: O2SAT 92
[2018-08-12] MEDS ORDERED: Albuterol-Ipratrop 3 mg / 0.5 (3 ml) UD IH PRN (07:04)
--- NOTE | 2018-08-12 07:56 | PN ---
DATE: 08/12/2018 PULMONARY NOTE SUBJECTIVE: The patient appears comfortable this morning. He is not short of breath at rest. OBJECTIVE: VITAL SIGNS: Temperature is 98, pulse 77, respirations 20, blood pressure 102/67. Oxygen saturation on nasal cannula is 92-93%. HEENT: Normocephalic, atraumatic. No JVD. CARDIOVASCULAR: Systolic ejection murmur at the lower left sternal border. No S3 gallop. LUNGS: Decreased breath sounds at the bases. Minimal loose rhonchi. No wheezing. GI: Abdomen is soft, nontender and nondistended. Bowel sounds are positive. EXTREMITIES: There is mild edema noted to both lower extremities. There is no cyanosis or clubbing. The right calf is slightly tender to palpation this morning. The left calf is nontender to palpation. SKIN: No acute rash. NEUROLOGIC: Exam limited at the present time. IMPRESSION: 1. Left deep venous thrombosis. 2. Advanced lung cancer. 3. Advanced chronic obstructive pulmonary disease. 4. Coronary artery disease, positive troponin. 5. Hypoxemia. PLAN: The patient appears comfortable this morning. He is not short of breath at rest. He does state to feeling better overall. I did discuss the case with the night nurse at length. The night nurse stated that the patient did have a fairly good night, but did get short of breath and congested during the past shift. On physical exam, mild bronchospasm persists. In addition, the alveolar-arterial gradient also persists. I will continue with the inhaled steroids, but change to scheduled DuoNeb treatments. The patient remains on therapeutic Lovenox. Input by Cardiology is also noted. Repeat morning labs are pending. Clinical status of the patient is improved - compared to the initial presentation. However, unfortunately, the overall status/prognosis for this very pleasant elderly patient appears poor. I will discuss the above with Dr. Houston. Kris Corbin MD [facility]
[2018-08-12] MEDS ORDERED: Albuterol-Ipratrop 3 mg / 0.5 (3 ml) UD IH SCH (08:00)
[2018-08-12 08:06] LABS: HEMOGLOBIN 14.1 g/dL (14.0-18.0); INR 2.01; MEAN CELL VOLUME 81.4 fl (80.0-105.0); MEAN CORPUSCULAR HEMOGLOBIN 26.8 pg (25.0-35.0); MEAN CORPUSCULAR HGB CONC 32.9 g/dl (31.0-37.0); MEAN PLATELET VOLUME 10.3 fl (7.0-11.0); PROTHROMBIN TIME 23.4 SECONDS (9.4-12.5); RBC 5.26 10^6/uL (3.5-6.1); RED CELL DISTRIBUTION WIDTH 17.1 % (11.5-14.5); WHITE BLOOD COUNT 8.4 10^3/ul (4.5-11.0)
[2018-08-12] MEDS: Enoxaparin 80 mg Syringe SC SCH (08:24)
[2018-08-12 08:40] LABS: ALB/GLOB RATIO 1.3 (1.1-1.8); ALBUMIN 3.4 g/dL (3.0-4.8); CALCIUM 12.3 mg/dL (8.4-10.5)
[2018-08-12] MEDS: Budesonide 0.5 mg/2 ml Inhal Susp UD IH SCH (09:50)
[2018-08-12] MEDS: Metoprolol Succinate 25 mg XL Tab PO SCH (10:25)
[2018-08-12 13:39] VITALS: BP 101/59; RESP 18; TEMP 97.3
[2018-08-12 15:30] VITALS: PULSE 83
--- NOTE | 2018-08-12 16:16 | US ---
HISTORY: Leg pain and swelling. Evaluate for DVT PHYSICIAN(S): Zeyad Willis MD. TECHNIQUE: Duplex sonography and color-flow Doppler with graded compression were used to evaluate the deep venous systems of both lower extremities. FINDINGS: There is adherent, nonocclusive thrombus in the distal right popliteal vein. The right femoral vein and right common femoral vein are normal and compressible. There is no sonographic evidence for deep venous thrombosis in the visualized segments of left lower extremity IMPRESSION: Adherent, partially occlusive thrombus in the distal right popliteal vein. Age indeterminate
--- NOTE | 2018-08-12 20:14 | PN ---
DATE: 08/12/2018 SUBJECTIVE: The patient complains of right leg pain. He is mildly short of breath, on nasal O2. PHYSICAL EXAMINATION: VITAL SIGNS: Blood pressure 101/59, heart rate 84, temperature 97.3, respirations 18. HEENT: Normocephalic. CHEST: Diffuse bilateral rhonchi. HEART: S1 and S2, regular. ABDOMEN: Soft. EXTREMITIES: 1+ right leg edema. LABORATORY DATA: Today's hemoglobin and hematocrit 14.1 and 42.8. White count 8.4, platelet count 167,000. Today's SMA-7: Sodium 136, potassium 4.2, chloride 105, CO2 of 23, glucose 93, BUN 29, creatinine 1.7. Today's calcium is 12.3. ASSESSMENT: 1. Recurrent deep venous thrombosis. 2. 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 3. Right ventricular failure. 4. Lung carcinoma. RECOMMENDATIONS: Patient can be discharged from the cardiac point on Coumadin 3 mg daily, albuterol inhaler, Toprol-XL 25 mg daily, Ultram 50 mg every 6 hours. Juan Dietz MD
--- NOTE | 2018-08-13 08:20 | DS ---
HISTORY OF PRESENT ILLNESS: He is resting comfortably in bed. He has got a DuoNeb treatment and he is on oxygen. He is doing better than he did when he came in to the hospital. He does have worsening of his lung cancer, it is now in the lower and upper lobe of the left side. He also has a left DVT we have been dealing with Coumadin for long time now. He has also COPD, CADS, CHF. He was doing better. He is on Colace, Coumadin, DuoNeb, Exelon patch, he will now be on Lovenox 70 mg subcu b.i.d. The patient family give it to him, he will not be on morphine anymore. He will be on Mylicon, Pulmicort, Toprol and Ultram for pain. He is comfortable in bed, resting better. He slept fairly well last night, he is back to his baseline. PHYSICAL EXAMINATION: VITAL SIGNS: He has a 98 temp, 77 pulse, 102/67 blood pressure, 20 respiratory rate, 92% O2 sat on 3 liters nasal cannula, which is the baseline. HEENT: His head is atraumatic, normocephalic. HEART: Regular rate. LUNGS: Decreased breath sounds bilaterally, but no wheezes, rhonchi or rales. ABDOMEN: Soft, nontender, positive bowel sounds. EXTREMITIES: Have no edema. LABORATORY DATA: He has a 8.4 white count, 14.1 hemoglobin, 42.3 hematocrit with 167 platelets, INR is 2. He is on Coumadin. He has 136 sodium, potassium 4.2, BUN 29, creatinine 1.7, GFR is 38, sugar is 93, calcium is 12.3, AST is 18, ALT is 19, alk phos 64, troponin is 0.14. The mud jack operator does not want to be aggressive with him under his situation. ASSESSMENT AND PLAN: He will be discharged today. I discuss this at length with the daughter. I discussed also hospice, which he will think about and let me know on Monday tomorrow. He has had very good care for him at home and also discussed home visiting nurses and homemakers, they will call me tomorrow. I have a very good relationship with them. I will be seeing him on house call and he understands the gravity and the severity of his illness and that he is worsening and he probably does not have more than 6 months to live, we discussed that and he will be discharged today. We will make the arrangements to get ambulance to take him home, discussed that with the nurse. Kosta Houston DO [facility]
== END 2018-08-12 15:11 | disposition home or self-care (01) ==
LOC: ED 15:46 → ERH 20:21 → 2RNO 22:10
PROVIDERS: ADMIT Family Medicine; ATTEND Family Medicine
DX: I82.431 Acute embolism and thrombosis of right popliteal vein (principal); Z79.02 Long term (current) use of antithrombotics/antiplatelets; C34.32 Malignant neoplasm of lower lobe, left bronchus or lung; C34.12 Malignant neoplasm of upper lobe, left bronchus or lung; F17.210 Nicotine dependence, cigarettes, uncomplicated; I25.10 Atherosclerotic heart disease of native coronary artery without angina pectoris; I50.810 Right heart failure, unspecified; I27.29 Other secondary pulmonary hypertension; J44.9 Chronic obstructive pulmonary disease, unspecified; K21.9 Gastro-esophageal reflux disease without esophagitis; N28.9 Disorder of kidney and ureter, unspecified; R09.02 Hypoxemia; Z66 Do not resuscitate; Z99.81 Dependence on supplemental oxygen; I25.2 Old myocardial infarction; Z87.01 Personal history of pneumonia (recurrent)
CPT/HCPCS: 36415; 71045; 71275; 80053; 82550; 82803; 83615; 83735; 83880; 84484; 85025; 85027; 85378; 85610; 85730; 87040; 93005; 93970; 94640; 94760; 96372; 97162; 99285; G0378; G8978; G8979; J1650; J1940; J2270; Q9967

== ENCOUNTER 2018-08-31 21:56 | Inpatient (IN) | payer MEDICARE, OTHER, BC ==
[2018-08-31] MEDS ORDERED: Albuterol-Ipratrop 3 mg / 0.5 (3 ml) UD ONE (22:20)
[2018-08-31 22:22] LABS: VENOUS BLOOD GAS BASE EXCESS -12.6 mmol/L (0.0-2.0); VENOUS BLOOD GAS PO2 51 mm/Hg (30-55)
[2018-08-31 22:22] LABS: BASO # 0.01 K/mm3 (0.0-2.0); BASO % 0.1 % (0.0-3.0); EOS # 0.1 (0.0-0.7); EOS % 1.1 % (1.5-5.0); GRAN # 6.47 (1.4-6.5); GRAN % 73.8 % (50.0-68.0); HEMOGLOBIN 14.8 g/dL (14.0-18.0); LYMPH # 1.6 (1.2-3.4); LYMPH % 17.9 % (22.0-35.0); MEAN CELL VOLUME 85.3 fl (80.0-105.0); MEAN CORPUSCULAR HEMOGLOBIN 27.6 pg (25.0-35.0); MEAN CORPUSCULAR HGB CONC 32.3 g/dl (31.0-37.0); MEAN PLATELET VOLUME 11.1 fl (7.0-11.0); MONO # 0.6 (0.1-0.6); MONO % 7.1 % (1.0-6.0); RBC 5.37 10^6/uL (3.5-6.1); RED CELL DISTRIBUTION WIDTH 18.3 % (11.5-14.5); WHITE BLOOD COUNT 8.8 10^3/ul (4.5-11.0)
--- NOTE | 2018-08-31 22:24 | ED PDOC ---
Arrival/HPI - General Chief Complaint: Respiratory Distress Time Seen by Provider: 08/31/18 22:23 Historian: Patient - History of Present Illness Narrative History of Present Illness (Text): 08/31/18 22:52 87 year old male, whose past medical history includes COPD, lung cancer, DVT, emphysema, chronic cough, and chronic back pain, who presents to the ED via EMS complaining of SOB marketing sales representative. Patient also notes lower abdominal pain. Patient felt better upon IV and breathing treatment administered by EMS in the field. Patient has a current, recurring blood clot in the rt leg and is on Coumadin and Lovenox bid. Patient is currently on a nebulizer at home 4x a day. Patient denies any new chest pain, fever, chills, n/v/d, or any other complaints. Time/Duration: Prior to Arrival Symptom Onset: Sudden Symptom Course: Unchanged Activities at Onset: Light Context: Home Past Medical History - Provider Review Nursing Documentation Reviewed: Yes - Infectious Disease Hx of Infectious Diseases: None - Cardiac Hx Cardiac Disorders: Yes (CAD) - Pulmonary Hx Chronic Obstructive Pulmonary Disease (COPD): Yes - Neurological Hx Neurological Disorder: No - HEENT Hx HEENT Disorder: Yes (eyeglasses) - Renal Hx Renal Failure: Yes - Endocrine/Metabolic Hx Endocrine Disorders: No - Hematological/Oncological Hx Blood Disorders: Yes Hx Cancer: Yes (LUNG CA NO [place]) - Integumentary Hx Dermatological Disorder: No - Musculoskeletal/Rheumatological Hx Musculoskeletal Disorders: Yes Hx Back Pain: Yes (chronic mid and lower back) Hx Falls: Yes - Gastrointestinal Hx Gastrointestinal Disorders: Yes Hx Gastroesophageal Reflux: Yes - Genitourinary/Gynecological Hx Genitourinary Disorders: Yes (HESITANCY) - Psychiatric Hx Psychophysiologic Disorder: No Hx Substance Use: No - Surgical History Hx Cardiac Catheterization: Yes Hx Cholecystectomy: Yes - Anesthesia Hx Anesthesia: No Family/Social History - Physician Review Nursing Documentation Reviewed: Yes Family/Social History: Unknown Family HX Smoking Status: Former Smoker Hx Alcohol Use: No Hx Substance Use: No Allergies/Home Meds Allergies/Adverse Reactions: Allergies No Known Allergies Allergy (Verified 08/10/18 21:12) Home Medications: Home Meds Medication Instructions Recorded Confirmed RX: Warfarin [Coumadin] 5 mg PO DAILY 03/31/16 09/01/18 Metoprolol Succinate [Toprol Xl] 25 mg PO DAILY 05/26/18 08/31/18 RX: Albuterol HFA [Ventolin HFA 90 0.09 mg IH BID 05/26/18 08/31/18 mcg/actuation (8 g)] RX: Albuterol/Ipratropium [Duoneb 3 ml IH BID 05/26/18 08/31/18 3 mg/0.5 mg (3 ml) UD] RX: Cholecalciferol [Vitamin D 2,000 iu PO DAILY 05/26/18 08/31/18 1000 IU] RX: Furosemide [Lasix] 20 mg PO PRN PRN 05/26/18 08/31/18 RX: traMADol [Ultram] 50 mg PO PRN PRN 05/26/18 08/31/18 Review of Systems - Physician Review All systems were reviewed & negative as marked: Yes - Review of Systems Constitutional: Normal Eyes: Normal ENT: Normal Respiratory: SOB Cardiovascular: Normal. absent: Chest Pain Gastrointestinal: Abdominal Pain (lower abdominal pain). absent: Diarrhea, Nausea, Vomiting Genitourinary Male: Normal. absent: Dysuria, Frequency Musculoskeletal: Normal. absent: Back Pain, Neck Pain Skin: Normal. absent: Rash Neurological: Normal. absent: Headache, Dizziness Endocrine: Normal Hemo/Lymphatic: Normal Psychiatric: Normal Physical Exam - Physical Exam Narrative Physical Exam (Text): 08/31/18 23:01 Gen: NAD, cooperative, well appearing, non-toxic. Head: NCAT. EYES: PERRL, EOMI, conjunctiva clear, EARS: TMs clear CV: (+) S1S2, RRR, no M/G/R LUNGS: Decreased breathing sounds bilaterally, mild respiratory distress, mild expiratory wheezing. Abd: Soft, NTTP, no guarding, rebound or rigidity. Neuro: AAO x 3, GCS 15, CN 2-12 intact, motor and sensory grossly intact, 5/5 muscle strength B/L UE's and LE's. ext: pedal edema Vital Signs Reviewed: Yes Vital Signs Pulse Resp Pulse Ox 08/31/18 21:56 102 H 18 82 L Temperature: Afebrile Blood Pressure: Normal Pulse: Tachycardic Respiratory Rate: Normal Appearance: Positive for: Well-Appearing, Non-Toxic, Comfortable Pain Distress: None Mental Status: Positive for: Alert and Oriented X 3 Medical Decision Making ED Course and Treatment: 08/31/18 23:03 Impression: 87 year old male presents to the ED complaining of SOB marketing sales representative. Plan: -- VBG -- EKG -- CXR -- Blood Culture -- Urine C&S -- UA -- Tylenol Progress Notes: EKG reviewed, shows Sinus tachycardia at 108 bpm. First Degree AV block. PAC's. Non-specific ST changes. EKG reviewed from 08/11/18, no significant changes. Upon evaluation, pt feels much better. O2 Saturation is improving. Heart rate is improving. Pt on bipap, O2 saturation up to 93%. Previous charts reviewed, pt baseline O2 saturation is 92%. CXR reviewed by me, shows possible infiltrate to right lower lobe. SHIRA recinos applied for rectal temp of 95.8. Discussion with daughter, who states pt has a living will that states he does not want to be maintained on life support. However, does not have a DNR/DNI. Pt and family have not decided on hospice at this point. 08/31/18 23:07 Code Sepsis called. 08/31/18 23:39 Bipap settings at 10/5 at 50%. 08/31/18 23:51 Case discussed with De. Houston, who is aware and agrees with plan. Accepts pt for remote telly. 08/31/18 23:58 Dr. Corbin to be consulted for pulmonology. Dr Stephani King to be consulted for ID. - Lab Interpretations Lab Results: 08/31/18 22:18 Lab Results 08/31/18 22:18: WBC 8.8, RBC 5.37, Hgb 14.8, Hct 45.8, MCV 85.3 D, MCH 27.6, MCHC 32.3, RDW 18.3 H, Plt Count 227, MPV 11.1 H, Gran % 73.8 H, Lymph % (Auto) 17.9 L, [place] % (Auto) 7.1 H, Eos % (Auto) 1.1 L, Baso % (Auto) 0.1, Gran # 6.47, Lymph # (Auto) 1.6, [place] # (Auto) 0.6, Eos # (Auto) 0.1, Baso # (Auto) 0.01 08/31/18 22:05: POC Glucose (mg/dL) 138 H - RAD Interpretation Radiology Orders: 08/31/18 22:14 CHEST PORTABLE [RAD] Stat - Scribe Statement The provider has reviewed the documentation as recorded by the Scribe Darshana Collins All medical record entries made by the Scribe were at my direction and personally dictated by me. I have reviewed the chart and agree that the record accurately reflects my personal performance of the history, physical exam, medical decision making, and the department course for this patient. I have also personally directed, reviewed, and agree with the discharge instructions and disposition. Disposition/Present on Arrival - Present on Arrival Any Indicators Present on Arrival: Yes History of DVT/PE: Yes History of Uncontrolled Diabetes: No Urinary Catheter: No History of Decub. Ulcer: No History Surgical Site Infection Following: None - Disposition Have Diagnosis and Disposition been Completed?: Yes Diagnosis: Elevated brain natriuretic peptide (BNP) level, Respiratory failure, COPD with exacerbation, Sepsis, Hypothermia Disposition: HOSPITALIZED Disposition Time: 23:51 Patient Plan: Admission Patient Problems: Current Active Problems Problem Status Onset COPD with exacerbation Acute Elevated brain natriuretic peptide (BNP) level Acute Respiratory failure Acute Condition: FAIR
[2018-08-31 22:35] LABS: ALB/GLOB RATIO 1.2 (1.1-1.8); ALBUMIN 3.6 g/dL (3.0-4.8); CALCIUM 11.7 mg/dL (8.4-10.5)
[2018-08-31 22:36] LABS: VENOUS BLOOD PH 7.14 (7.32-7.43)
[2018-08-31 22:44] LABS: TROPONIN I 0.04 ng/mL
[2018-08-31 22:56] LABS: PARTIAL THROMBOPLASTIN TIME 38.8 Seconds (25.1-36.5); PROTHROMBIN TIME 42.4 SECONDS (9.4-12.5)
[2018-08-31] MEDS ORDERED: Piperacillin/Tazobact 3.375 gm 100 ML IVPB STA (23:08)
[2018-08-31 23:45] LABS: INR 3.62
[2018-08-31 23:56] LABS: URINE BILIRUBIN NEGATIVE (NEGATIVE); URINE BLOOD SMALL (NEGATIVE); URINE GLUCOSE (UA) 100 mg/dL (NEGATIVE); URINE LEUKOCYTE ESTERASE NEGATIVE Leu/uL (NEGATIVE); URINE PROTEIN >=300 mg/dL (<30 mg/dL)
[2018-09-01 00:09] LABS: URINE APPEARANCE SL CLOUDY (CLEAR); URINE COLOR YELLOW (YELLOW)
[2018-09-01 00:36] LABS: URINE BACTERIA FEW (NEG); URINE WBC 0 - 2 /hpf (0-6)
[2018-09-01 01:42] LABS: VENOUS BLOOD GAS BASE EXCESS -7.5 mmol/L (0.0-2.0); VENOUS BLOOD GAS PO2 51 mm/Hg (30-55); VENOUS BLOOD PH 7.33 (7.32-7.43)
--- NOTE | 2018-09-01 01:55 | PCM.SEPTIC ---
<Eugenio Izquierdo - Last Filed: 09/01/18 01:54> Sepsis Progress Note - Reassessment Type Date of Evaluation: 09/01/18 Time of Evaluation: 01:54 Reassessment Type: Non-invasive reassessment - Non Invasive Reassessment Were the most recent vital sign reviewed: Yes Vital Sign (Latest): Temp Pulse Resp BP Pulse Ox 96.4 F L 92 H 18 104/70 96 09/01/18 00:30 09/01/18 00:44 09/01/18 00:44 09/01/18 00:44 09/01/18 00:44 Cardiovascular: Yes: Regular Rate, Rhythm. No: Chest Non Tender, Edema, Gallop, JVD, Bradycardia, Tachycardia Respiratory: Yes: Crackles. No: Accessory Muscle Use, Respiratory Distress Capillary Refill: Delayed Skin: Normal Color, Warm, Dry <Kenan Moore - Last Filed: 09/01/18 06:40> Sepsis Progress Note - Non Invasive Reassessment Vital Sign (Latest): Temp Pulse Resp BP Pulse Ox 97.9 F 902 H 18 99/60 L 91 L 09/01/18 06:00 09/01/18 06:00 09/01/18 06:00 09/01/18 06:00 09/01/18 06:00 Attending/Attestation - Attestation I have personally seen and examined this patient.: No I have fully participated in the care of the patient.: No I have reviewed all pertinent clinical information, including history, physical exam and plan: No
[2018-09-01 03:48] VITALS: BMI 19.6
[2018-09-01] MEDS ORDERED: Albuterol-Ipratrop 3 mg / 0.5 (3 ml) UD ONE (09:51)
[2018-09-01] MEDS: Albuterol-Ipratrop 3 mg / 0.5 (3 ml) UD IH SCH ×5 (09:55→20:00)
[2018-09-01] MEDS ORDERED: Cholecalciferol 1,000 INTLU TAB PO SCH (10:00)
--- NOTE | 2018-09-01 10:24 | RAD ---
Date of service: 08/31/2018 HISTORY: CHEST PAIN COMPARISON: 08/10/2018 FINDINGS: LUNGS: Increasing consolidative change left lower lobe. PLEURA: Increasing right pleural effusion. CARDIOVASCULAR: No atherosclerotic calcification present No radiographic findings to suggest acute or significant cardiovascular disease. OSSEOUS STRUCTURES: No significant abnormalities. VISUALIZED UPPER ABDOMEN: Normal. OTHER FINDINGS: None. IMPRESSION: Progressive changes left darren thorax including increasing left lower lobe infiltrate and larger left pleural effusion.
[2018-09-01] MEDS: Enoxaparin 80 mg Syringe SC SCH ×2 (10:41→21:25)
--- NOTE | 2018-09-01 11:56 | CARD ---
APPROVED REPORT Date of service: 08/31/2018 EKG Measurement Heart [id number] <Conclusion> Sinus tachycardia with 1st degree AV block with premature atria and ventricular complexes Right bundle branch block Left anterior fascicular block Abnormal ECG
[2018-09-01 12:06] LABS: ALB/GLOB RATIO 1.3 (1.1-1.8); ALBUMIN 3.5 g/dL (3.0-4.8); CALCIUM 12.4 mg/dL (8.4-10.5); PROTHROMBIN TIME 46.5 SECONDS (9.4-12.5)
[2018-09-01 12:11] LABS: INR 3.93
[2018-09-01] MEDS: MethylPREDNISolone 40 mg Vial IVP SCH ×2 (12:35→21:27)
[2018-09-01] MEDS: Budesonide 0.5 mg/2 ml Inhal Susp UD IH SCH ×2 (13:41→19:59)
[2018-09-01] MEDS ORDERED: Piperacillin/Tazobact 3.375 gm 100 ML IVPB SCH (14:00)
[2018-09-01] MEDS: Arformoterol 15 mcg/2 ml Inh Sol IH SCH (19:59)
--- NOTE | 2018-09-01 21:19 | HP ---
HISTORY OF PRESENT ILLNESS: I know Tre for many years. I have doing house calls on him for long time. He has lung cancer. He has got COPD. He has got CHF, DVT, emphysema, chronic back pain, chronic cough, shortness of breath on 3-4 liters of oxygen at home. He presents with acute shortness of breath again despite the oxygen at home and increasing medications at home. He failed outpatient treatment. He is on Coumadin and Lovenox for recurrent blood clots in the leg which could happen with cancer. PAST MEDICAL HISTORY: He has COPD, CAD, renal failure, lung cancer with two masses, chronic back pain, falls, reflux and urinary hesitancy. PAST SURGICAL HISTORY: Cholecystectomy history and cardiac cath history. FAMILY HISTORY: Unknown. SOCIAL HISTORY: Former smoker. No alcohol. No drugs. ALLERGIES: NO KNOWN DRUG ALLERGIES. MEDICATIONS: He is on Coumadin, Ventolin, DuoNebs, vitamin D, Lasix, Toprol, Ultram and Lovenox. REVIEW OF SYSTEMS: He has no acute vision or hearing changes. He is presently confused from dementia. No sore throat. He is shortness of breath, on oxygen. No chest pain. No abdominal pain. He has back pain. No problems with urinating. No rashes. No headaches. PHYSICAL EXAMINATION: VITAL SIGNS: He has a 102 pulse, 18 respiratory rate, 82% O2 sat on 2 liters. He is definitely hypoxic. HEENT: His head is atraumatic and normocephalic. He is toxic-appearing and short of breath. Extraocular muscles are intact. Pupils are equal and reactive to light. Throat is moist. NECK: Supple. HEART: Regular rate. Normal S1, S2. LUNGS: Decreased breath sounds but clear to auscultation bilaterally. Occasional wheeze, it changes with cough. ABDOMEN: Soft, nontender. Positive bowel sounds. No guarding. No rebound. No CVA tenderness. NEUROLOGIC: GCS is 15. Cranial nerves II through XII grossly intact. Motor skills are okay. His speech is okay. EXTREMITIES: He has got +1/4 pitting edema in bilateral lower extremities, which is sort of new for him. SKIN: Okay. LYMPHATICS: No palpable thyroid. No palpable lymphadenopathy. GENERAL: He is short of breath, on oxygen. Alert and oriented x3. LABORATORY DATA: He has a urine which showed 100 glucose, negative for leukocytes. Sodium 141, potassium 4.3, BUN 24, creatinine 1.5, GFR is 44, sugar is 135, calcium is 11.7, total bili is 0.6, AST is 28, ALT is 69, alk phos 52. Lactate dehydrogenase is 484. Total creatine kinase is 58. Troponin I 0.04. BNP is very high at 7650. Total protein is 6.5, albumin is 2.6. His lactate was 5.9, now it is down to 3.2, still elevated; 3.62 INR, hold the Coumadin. White count 8.8, hemoglobin 14.8, hematocrit 45.8 with 227 platelets. Chest x-ray shows progressive changes left hemithorax, increasing left lower lobe infiltrate, larger left pleural effusion. ASSESSMENT AND PLAN: He will have some Solu-Medrol, some Zosyn IV. He will have DuoNebs, Lovenox, budesonide, Solu-Medrol. He will be consulted with Pulmonary and Infectious Disease. We will do the best we can to get him better. He is here for pneumonia, chronic obstructive pulmonary disease, lung cancer, congestive heart failure, hypoxic. Kosta Houston DO
[2018-09-01] MEDS: Cefepime 1gm in NS 100ml 1 GM/100 ML BAG IVPB SCH (21:26)
--- NOTE | 2018-09-01 23:05 | CON ---
DATE: 09/01/2018 SUBJECTIVE: The patient was seen and examined at bedside on telemetry with the following history of present illness. HISTORY OF PRESENT ILLNESS: There is a history of shortness of breath that brought the patient to emergency room. He also has a past medical history of chronic obstructive pulmonary disease, lung cancer, deep vein thrombosis, emphysema, and chronic back pain. The patient was seen in the emergency room, diagnosed with exacerbation of chronic obstructive pulmonary disease and suspected pneumonia, and transferred to telemetry. PAST MEDICAL HISTORY: As documented in history of present illness. Positive for heart disease, positive for chronic obstructive pulmonary disease, positive for lung cancer and chronic back pain. FAMILY HISTORY: Negative for inherited diseases. SOCIAL HISTORY: He is a former smoker and nondrinker. Never used illicit drugs. ALLERGIES: NO KNOWN ALLERGIES. HOME MEDICATIONS: Included albuterol, warfarin, furosemide, metoprolol, and tramadol. REVIEW OF SYSTEMS: Conducted by reviewing all sources. CONSTITUTIONAL: Negative for fever. RESPIRATORY: Positive shortness of breath. CARDIOVASCULAR: Absent chest pain. GASTROINTESTINAL: Positive for abdominal pain, lower abdomen. Absent diarrhea, nausea, and vomiting. The rest of the systems were reviewed and found to be negative. PHYSICAL EXAMINATION VITAL SIGNS: His pulse is 102; respirations 18; pulse oximetry, currently is 90 on high flow oxygen. HEAD: Normocephalic and atraumatic. EARS, NOSE, AND THROAT: Within normal limits. NECK: Supple with no jugular vein distention. CARDIOVASCULAR: S1, S2. No S3, irregular. PULMONARY: Diminished breath sounds bilaterally with few rhonchi, left more than right. GI: Soft and nontender. No organomegaly. EXTREMITIES: No pedal edema. SKIN: No acute skin rash. NEUROLOGIC: Limited at present time. LABORATORY DATA: Reviewed. First, hypoxia with low levels of oxygen noted. Patient started on BiPAP at night and high flow oxygen during the day. His WBCs were 8.8, hemoglobin of 14.8. DIAGNOSTIC DATA: Portable chest x-ray was reviewed by me. This reveals haziness at the left lung base, which could be a combination of small effusion and infiltrate versus atelectasis. Given the clinical presentation, left lower lobe pneumonia is a good possibility. ASSESSMENT: 1. Left lower lobe pneumonia. 2. Exacerbation of chronic obstructive pulmonary disease. 3. History of lung cancer. 4. Hypoxia. PLAN: The patient was started on intravenous Zosyn. We will administer nebulizer treatment with Brovana and budesonide. He is also on low-dose intravenous steroids. His condition is starting to stabilize but remains extremely guarded. Brody Nesbitt MD
[2018-09-02] MEDS: Albuterol-Ipratrop 3 mg / 0.5 (3 ml) UD IH SCH ×5 (01:22→13:32)
[2018-09-02 01:28] VITALS: O2SAT 96
--- NOTE | 2018-09-02 03:25 | CON ---
DATE: 09/01/2018 LOCATION: The patient seen in room 270, bed 1. The patient's daughter at the bedside. CHIEF COMPLAINT: Weakness times several days. HISTORY OF PRESENT ILLNESS: This is an 87-year-old male with a history of chronic obstructive lung disease, history of lung cancer, history of DVT, history of emphysema and chronic cough, chronic back pain who also has kidney disease, was admitted to the emergency room with weakness and shortness of breath for several days. REVIEW OF SYSTEMS: Reveals mild shortness of breath, low-grade fevers, cough - nonproductive, occasional abdominal pain. No diarrhea or constipation. No dysuria or frequency. No headache. No blurred vision. A 12-point review of systems is performed. PAST MEDICAL HISTORY: Significant for end-stage chronic obstructive lung disease, lung cancer, DVT, emphysema, kidney disease, coronary artery disease, myocardial infarction, congestive heart failure, arthritis, anxiety, Alzheimer's, questionable tuberculosis in the past according to nursing note. PAST SURGICAL HISTORY: Significant for cardiac catheterization, cholecystectomy. ALLERGIES: THE PATIENT HAS NO KNOWN ALLERGIES. MEDICATIONS: Medications at home include Coumadin, tramadol, , Lasix. PHYSICAL EXAMINATION GENERAL: The patient is in bed. VITAL SIGNS: The patient did have a temperature of 96.4, and it was down to 95.8 in the emergency room. Blood pressure was 89/50. Respiratory rate of 20, it is up to 23. Heart rate was up to 97. HEENT: Unremarkable. NECK: Supple. CARDIOPULMONARY: Normal S1, S2. LUNGS: Decreased breath sounds. ABDOMEN: Soft, nontender. LABORATORY DATA: Reveals a white count of 8.8, hemoglobin 14, and platelets are 227. Chemistries reveal a BUN of 28, creatinine is 1.7, calcium is 12.4. The BNP is 7650. Urinalysis is noted. Microbiology is pending. The patient had a chest x-ray. Consolidative changes. ASSESSMENT AND PLAN: He is an 87-year-old male with lung cancer, chronic obstructive pulmonary disease, emphysema, kidney disease, coronary artery disease, myocardial infarction, and Alzheimer's who is presenting with hypothermia, dyspnea, tachycardia, hypotension with severe sepsis secondary to healthcare associated pneumonia, rule out gram-positive cocci versus gram-negative rods pneumonia. We will treat the patient with Maxipime, doxycycline pending blood cultures, urine cultures, sputum cultures. We will order procalcitonin nasal MRSA screen. We will discontinue the Zosyn due to a history of congestive heart failure, sodium load pending pancultures. We will also order a urine for Legionella antigen. We will make further recommendations, although prognosis is quite poor for this patient . We will follow with you. Maciej Costello MD
[2018-09-02 07:23] LABS: HEMOGLOBIN 13.5 g/dL (14.0-18.0); MEAN CELL VOLUME 82.4 fl (80.0-105.0); MEAN CORPUSCULAR HEMOGLOBIN 27.4 pg (25.0-35.0); MEAN CORPUSCULAR HGB CONC 33.3 g/dl (31.0-37.0); MEAN PLATELET VOLUME 10.6 fl (7.0-11.0); RBC 4.93 10^6/uL (3.5-6.1); RED CELL DISTRIBUTION WIDTH 17.6 % (11.5-14.5); WHITE BLOOD COUNT 3.9 10^3/ul (4.5-11.0)
[2018-09-02 07:26] LABS: INR 2.8; PROTHROMBIN TIME 32.9 SECONDS (9.4-12.5)
[2018-09-02] MEDS: Budesonide 0.5 mg/2 ml Inhal Susp UD IH SCH ×2 (07:34→13:32)
[2018-09-02] MEDS: Arformoterol 15 mcg/2 ml Inh Sol IH SCH (07:34)
[2018-09-02 07:38] LABS: ALB/GLOB RATIO 1.2 (1.1-1.8); ALBUMIN 3.6 g/dL (3.0-4.8); CALCIUM 12.6 mg/dL (8.4-10.5)
[2018-09-02] MEDS ORDERED: Metoprolol Succinate 25 mg XL Tab PO SCH (08:00)
[2018-09-02] MEDS: Enoxaparin 80 mg Syringe SC SCH (08:52)
[2018-09-02] MEDS: Cefepime 1gm in NS 100ml 1 GM/100 ML BAG IVPB SCH (09:49)
[2018-09-02] MEDS: MethylPREDNISolone 40 mg Vial IVP SCH (09:54)
--- NOTE | 2018-09-02 11:09 | PN ---
DATE: 09/02/2018 PULMONARY PROGRESS NOTE SUBJECTIVE: The patient was seen and examined at the bedside with the family present at bedside. He is currently on high-flow oxygen. His oxygen saturation is 95% and he appears to be much less short of breath. PHYSICAL EXAMINATION: VITAL SIGNS: His temperature is 98.2, pulse is 98, respirations 18, pulse oximetry is 96 on high flow, blood pressure is 123/87. HEENT: Examination of head, ears, nose and throat is within normal limits. NECK: Supple with no jugular vein distention. CARDIOVASCULAR: S1, S2. No S3. Irregular. PULMONARY: Diminished breath sounds at both bases with rhonchi at both bases, left more than right. GASTROINTESTINAL: Soft, nontender. No organomegaly. EXTREMITIES: No pedal edema. SKIN: No acute skin rash. NEUROLOGIC: Limited at present time. ASSESSMENT: 1. Left lower lobe pneumonia. 2. Severe sepsis. 3. Advanced lung cancer. 4. Advanced chronic obstructive pulmonary disease. 5. Renal insufficiency. 6. Hypercalcemia. PLAN: The patient appears to be improving. Case discussed with nursing as well as Dr. Costello's input. Antibiotics were changed by Infectious Disease to Maxipime and doxycycline and piperacillin and tazobactam were discontinued due to high sodium load. The patient appears to be improved on that regimen. His serum creatinine is 1.9, calcium is elevated at 12.6. WBC 3.9, hemoglobin of 13.5. We will continue with current antibiotic administration, low-dose intravenous steroids, nebulizer treatment and high-flow oxygen. When the oxygen improves further, he can be switched to nasal cannula. Brody Nesbitt MD
[2018-09-02] MEDS ORDERED: Bisacodyl 5mg EC Tab PO ONE (14:28)
--- NOTE | 2018-09-02 17:52 | PN ---
DATE: 09/02/2018 SUBJECTIVE: The patient is in bed, in no acute distress, nontoxic. No fevers and no chills. PHYSICAL EXAMINATION: VITAL SIGNS: Temperature is 98, blood pressure is 120/80, respiratory rate of 18. HEENT: Unremarkable. NECK: Supple. LUNGS: Have decreased breath sounds. HEART: Normal S1, S2. ABDOMINAL: Soft, nontender. LABORATORY EXAMINATION: Reveals the blood cultures are negative. White count is 3.9, hemoglobin of 13, platelets of 210. BUN of 30, creatinine of 1.9. Review of orders reveals the urine for Legionella antigen is pending. The patient is on p.o. doxycycline, IV cefepime, Solu-Medrol. ASSESSMENT AND PLAN: An 87-year-old male with a history of chronic obstructive lung disease, history of lung cancer, history of deep vein thrombosis, history of emphysema, chronic cough, chronic back pain, kidney disease, admitted through the emergency room, weakness and shortness of breath with severe sepsis secondary to healthcare-associated pneumonia, gram-positive cocci versus gram-negative sky. Today is day #2 of Maxipime and doxycycline. Remainder of the workup is pending. The patient's procalcitonin is 0.33 and does have an elevated calcium and increase in creatinine. We would recommend 4 to 7 days of antibiotics, today is day #2 of doxycycline p.o. and Maxipime of 4-7 days. Overall prognosis is quite poor for this patient who appears chronically ill, cachectic with a BMI of 19. Maciej Costello MD
--- NOTE | 2018-09-02 20:14 | PCM.RRT ---
SALES OFFICE ADMINISTRATOR Nurse Assessment - Situation Date: 09/02/18 Time SALES OFFICE ADMINISTRATOR was called: 06:53 SALES OFFICE ADMINISTRATOR Responder Arrival Time: 06:54 SALES OFFICE ADMINISTRATOR Location:: [address] [place] [address] SALES OFFICE ADMINISTRATOR Reason for Call: Change in Mental Status - IV IV Inserted during SALES OFFICE ADMINISTRATOR?: Yes IV Fluids Initiated During SALES OFFICE ADMINISTRATOR?: Fluids was administered - Respiratory Oxygen Delivery Method: Intubated Was the Patient Ventilated with Bag/Mask 100% O2?: Yes Secretions Suctioned?: No Was the Patient Intubated?: Yes Was the Patient Placed on a Ventilator?: Yes - Diagnostic Test Ordered Chest X-Ray: Yes - Stat Labs Ordered SALES OFFICE ADMINISTRATOR Stat Labs Ordered: TROPONIN, ABG CPR started during SALES OFFICE ADMINISTRATOR?: Yes - Finger Stick Blood Glucose Finger Stick Blood Glucose: 202 - Neurological Status (Select all that apply): absent: Alert, Responsive, Oriented, Verbal, Follows Commands, Disoriented, Confused, Lethargic, Aggressive, Weakness - Respiratory Oxygen Delivery Method: Intubated Plan - Assessment of Findings&Treatment Plan Rapid response was called for patient in 270-1. By time of arrival rapid response was converted to code blue. Patient started receiving chest compressions and ekg leads were being put on patient. Compressions continued wi th changes every 2 minutes between individuals. Patient achieved ROSC after 1 time dose of epinephrine as per ACLS protocol and compressions were stopped. Patient was intubated during the time of ROSC and sounds were heard with bag mask on ascultation. Patient once again became pulsess and chest compressions were started with fluids also being administered. Another 1x dose of epinephrine was administered and patient achieved ROSC and was transferred to ICU. Patient's family was spoken to by Dr. Solorzano who made the family aware of the full situation. Dr. Houston was made aware of the situation. After transfer to ICU patient had two more episodes of pulselessness. Patient's family was educated about the situation and patient was made DNR/DNI. After the second pulsesless activity noted in ICU chest compressions were not initiated.
--- NOTE | 2018-09-02 20:18 | CP.PCM.PRO ---
<Joie Love - Last Filed: 09/02/18 20:15> Pronouncement of Note - Clinical Findings Physical Exam: No Response Verbal/Painful Stimuli, Absent Peripheral Pulses{Carotid & Femoral}, Absent Heart & Breath Sounds, No Pupillary Light Reflex, No Corneal Reflex, Pupils Fixed & Dilated, Absence of Vital Signs - Pronouncement Time Time of Pronouncement of : 07:45 - Notifications Pronouncement Notifications: Family Notified, Atending Notified - Autopsy Autopsy Requested: No - [place] [id number] <Kayleen Mcbride - Last Filed: 09/02/18 21:44> Attending/Attestation - Attestation I have personally seen and examined this patient.: Yes I have fully participated in the care of the patient.: Yes I have reviewed all pertinent clinical information: Yes
--- NOTE | 2018-09-02 20:29 | PN ---
DATE: 09/02/2018 SUBJECTIVE: I saw Tre lying in his bed. He has high flow oxygen on. He is more comfortable today. Breathing better. Ate some. PHYSICAL EXAMINATION: VITAL SIGNS: He has a 98.2 temperature, 98 pulse, 123/87 blood pressure, 18 respiratory rate, 96% O2 sat on high flow. HEENT: Head: Atraumatic, normocephalic. HEART: Regular rate. LUNGS: Decreased breath sounds bilaterally. No wheezes or rhonchi with poor inspiration. ABDOMEN: Soft, nontender. Positive bowel sounds. EXTREMITIES: Better, less edema in the extremities, maybe trace. MEDICATIONS: He is currently on Brovana, Coumadin which was sought up again today, Doryx, DuoNebs, Exelon, Lasix IV, Lovenox, Maxipime IV, Pulmicort, Solu-Medrol IV, Toprol, Tylenol and Ultram. LABORATORY DATA: He has a white count of 3.9, hemoglobin 13.5, hematocrit 40.6, platelets of 210. INR is down to 2.8. I will restart the Coumadin. He has a chemistry, 138 sodium, potassium 4.6, BUN is 30, creatinine 1.9, GFR is 34. Sugar is 143. His calcium went from 11.7 to 12.4, now it is 12.6. He is already on IV Solu-Medrol and IV Lasix. Total bili is 0.5, AST is 20, ALT is 26, alkaline phosphatase 51, total protein 6.5. His BNP was 7650. Procalcitonin is 0.33. He is being seen by Infectious Disease and Pulmonary. He presented with hypothermia, shortness of breath, tachycardia, hypertension, severe sepsis secondary to healthcare-associated pneumonia. He is on lots of IV medications as per Infectious Disease and Pulmonary. We will decrease his Solu-Medrol a little bit. Hopefully, get him out of bed to chair. Restart his Coumadin. Check his labs tomorrow. Still a very poor prognosis overall. Kosta Houston DO [facility]
[2018-09-02 20:45] VITALS: TEMP 98.4
--- NOTE | 2018-09-02 21:37 | CP.PCM.PN ---
Subjective - Date & Time of Evaluation Date of Evaluation: 09/02/18 Time of Evaluation: 21:32 - Subjective Subjective: Reported to Dr. Cunningham in 270-01. was leading CODE BLUE team, he intubated . After getting pulse, and blood pressure back , was transferred to CCU- 07. He coded again in the unit, ACLS protocols followed. Patient's was talked to by and DNr order was obtained. When we lost pulse third time, we were not able to resuscitate patient after administration of 1 mg of Epinephrine IV. Patient was pronounced at 7.45 PM. Nurse was instructed to inform . CC time spent : 30 minutes. Objective - Vital Signs/Intake and Output Vital Signs (last 24 hours): Temp Pulse Resp BP Pulse Ox 98.4 F 96 H 20 102/72 96 09/02/18 18:00 09/02/18 18:00 09/02/18 18:00 09/02/18 18:00 09/02/18 06:00 Intake and Output: 09/02/18 09/03/18 18:59 06:59 Intake Total 100 720 Output Total 750 Balance 100 -30 - Medications Medications: Current Medications Acetaminophen (Tylenol 325mg Tab) 650 mg PO Q6H PRN PRN Reason: Pain, Mild (1-3) Albuterol/Ipratropium (Duoneb 3 Mg/0.5 Mg (3 Ml) Ud) 3 ml IH [id number] [facility] Last Admin: 09/02/18 13:32 Dose: 3 ml Albuterol/Ipratropium (Duoneb 3 Mg/0.5 Mg (3 Ml) Ud) 3 ml IH [id number] [facility] Last Admin: 09/02/18 13:32 Dose: Not Given Arformoterol Tartrate (Brovana) 15 mcg IH [id number] [facility] Last Admin: 09/02/18 07:34 Dose: 15 mcg Budesonide (Pulmicort Respules) 0.5 mg IH [id number] [facility] Last Admin: 09/02/18 13:32 Dose: 0.5 mg Docusate Sodium (Colace) 100 mg PO DAILY [facility] Doxycycline Hyclate (Doryx) 100 mg PO Q12 [facility]; Protocol Stop: 09/10/18 22:01 Last Admin: 09/02/18 09:54 Dose: 100 mg Enoxaparin Sodium (Lovenox) 70 mg SC Q12H [facility]; Protocol Last Admin: 09/02/18 08:52 Dose: 70 mg Furosemide (Lasix) 40 mg IVP DAILY [facility] Last Admin: 09/02/18 09:54 Dose: 40 mg Cefepime HCl (Maxipime 1gm) 1 gm in 100 mls @ 100 mls/hr IVPB Q12 [facility]; Protocol Stop: 09/10/18 22:01 Last Admin: 09/02/18 09:49 Dose: 100 mls/hr Methylprednisolone (Solu-Medrol) 40 mg IVP Q12 [facility] Last Admin: 09/02/18 09:54 Dose: 40 mg Metoprolol Succinate (Toprol Xl) 25 mg PO BRK [facility] Last Admin: 09/02/18 08:52 Dose: 25 mg Rivastigmine (Exelon 9.5 Mg/24 Hr Patch) 1 patch TD DAILY [facility] Last Admin: 09/02/18 09:54 Dose: 1 patch Tramadol HCl (Ultram) 50 mg PO TID PRN PRN Reason: Pain, moderate (4-7) Last Admin: 09/02/18 11:31 Dose: 50 mg Warfarin Sodium (Coumadin) 5 mg PO 1800 [facility]; Protocol Last Admin: 09/02/18 17:26 Dose: 5 mg - Labs Labs: 09/02/18 07:00 09/02/18 07:00 PT 32.9 SECONDS (9.4-12.5) H 09/02/18 07:00 INR 2.80 09/02/18 07:00 APTT 38.8 Seconds (25.1-36.5) H 08/31/18 22:18 Attending/Attestation - Attestation I have personally seen and examined this patient.: Yes I have fully participated in the care of the patient.: Yes I have reviewed all pertinent clinical information, including history, physical exam and plan: Yes
[2018-09-02 23:33] VITALS: BP 76/34; PULSE 85; RESP 13
--- NOTE | 2018-09-03 00:08 | CON ---
DATE: 09/02/2018 LOCATION: Room 270. HISTORY OF PRESENT ILLNESS: This is an 87-year-old male with known history of longstanding COPD and admitted here with progressive shortness of breath and has been started on IV steroid therapy and is now being referred for endocrine evaluation of persistent hypercalcemia. PAST MEDICAL HISTORY: Significant history of lung carcinoma, the exact details are not known at this time; history of chronic obstructive lung disease with previous admissions for exacerbations of bronchitis and emphysema with chronic cough; history of cardiac tachyarrhythmias with also significant history of a right leg peripheral arterial vasculopathy, currently on Coumadin therapy. FAMILY HISTORY: Positive for hypertension and heart disease. SOCIAL HISTORY: The patient has supportive family. No known substance use. REVIEW OF SYSTEMS: As mentioned above. Admits to generalized body weakness with easy fatigability and tiredness and suboptimal energy level. Also admits to progressive bouts of dizziness and lightheadedness, worse on the day of admission. No chest pains or palpitations, but admits to progressive shortness of breath, initially on exertion and then at rest with paroxysmal nocturnal dyspnea. Also admits to nausea, dyspepsia, and vague upper abdominal pains with habitual constipation. PHYSICAL EXAMINATION GENERAL: This is an average-built male, in no apparent distress. VITAL SIGNS: Blood pressure of 140/80, pulse of 100 beats per minute and regular, temperature 98, respirations 20, height is 6 feet, weight is 145 pounds. HEENT: Head, normocephalic. Eyes anicteric with pink conjunctivae. Funduscopy not possible at this time. Ears, nose, and throat otherwise normal. NECK: Supple. Thyroid gland is normal size. No carotid bruits or cervical adenopathy. CARDIOPULMONARY: Some adynamic precordium. S1, S2 is rapid and regular. LUNGS: Clear to auscultation. ABDOMEN: Flat, soft with positive bowel sounds. EXTREMITIES: No peripheral edema. Pulses are +2 bilaterally. LABORATORY DATA: Chemistry showed a BUN initially of 24, sodium 141, potassium 4.3, chloride 112, CO2 16, glucose 135, and creatinine 1.5. His calcium levels have ranged from 11.7 to 12.4 and 12.6 mg/dL. His ProBNP is 7650. ASSESSMENT: This is an 87-year-old male with acute exacerbation of chronic obstructive pulmonary disease, currently on intravenous steroid therapy and also has persistent hypercalcemia, and the possibility always of whether we are dealing with a parathyroid versus non-parathyroid etiology has to be ascertained at this time. With a significant history of lung carcinoma, we have to exclude any underlying osteolytic bone metastases versus humoral hypercalcemia of malignancy causing the aforementioned persistent hypercalcemia. PLAN OF MANAGEMENT: We will obtain a parathyroid hormone intact level and also a PTH-related peptide or protein to ascertain the aforementioned. A serum magnesium and phosphorus and also a 25-hydroxy vitamin D level will be obtained for tomorrow. We will obtain a baseline TSH and lipid panel as ordered. We will follow and advise accordingly. Alana Pulido MD
--- NOTE | 2018-09-03 11:09 | RAD ---
Date of service: 09/02/2018 HISTORY: code ginger COMPARISON: 08/31/2018. FINDINGS: LUNGS: Pulmonary vascular congestion, multifocal infiltrates right greater than left. Poorly visualize left lower lobe consolidative change again identified. PLEURA: Stable bilateral pleural effusions. Small right pneumothorax. The finding is marked on the study for review. CARDIOVASCULAR: Atherosclerotic calcifications identified primarily aortic arch. Normal. OSSEOUS STRUCTURES: No significant abnormalities. VISUALIZED UPPER ABDOMEN: Normal. OTHER FINDINGS: Satisfactory position of recently placed endotracheal tube. IMPRESSION: Multifocal infiltrates are progressive. Satisfactory position of endotracheal tube. Questionable small right apical pneumothorax. Communication of results: I discussed findings with Dr. Braxton at the time of this interpretation
== END 2018-09-02 19:45 | DRG 871 ==
LOC: ED 21:56 → ERH 09-01 → 2RSO 09-01 01:08 → CCU 09-02 19:00
PROVIDERS: ADMIT Family Medicine; ATTEND Family Medicine
PROC: 5A09357 Assistance with Respiratory Ventilation, Less than 24 Consecutive Hours, Continuous Positive Airway Pressure (ICD-10-PCS; principal; 2018-08-31)
DX: A41.9 Sepsis, unspecified organism (principal); J18.1 Lobar pneumonia, unspecified organism; J96.01 Acute respiratory failure with hypoxia; J44.1 Chronic obstructive pulmonary disease with (acute) exacerbation; C34.90 Malignant neoplasm of unspecified part of unspecified bronchus or lung; J44.0 Chronic obstructive pulmonary disease with (acute) lower respiratory infection; R64 Cachexia; Z68.1 Body mass index [BMI] 19.9 or less, adult; I25.10 Atherosclerotic heart disease of native coronary artery without angina pectoris; R65.20 Severe sepsis without septic shock; I11.0 Hypertensive heart disease with heart failure; I50.9 Heart failure, unspecified; E83.52 Hypercalcemia; G30.9 Alzheimer's disease, unspecified; F02.80 Dementia in other diseases classified elsewhere, unspecified severity, without behavioral disturbance, psychotic disturbance, mood disturbance, and anxiety; K21.9 Gastro-esophageal reflux disease without esophagitis; N28.9 Disorder of kidney and ureter, unspecified; Y95 Nosocomial condition; Z66 Do not resuscitate; I25.2 Old myocardial infarction; Z79.01 Long term (current) use of anticoagulants; Z86.718 Personal history of other venous thrombosis and embolism; Z87.891 Personal history of nicotine dependence; Z99.81 Dependence on supplemental oxygen